=== PATIENT | female | born 1955 | race Asian ===

== ENCOUNTER 2020-10-15 08:58 | Outpatient (REF) | payer OTHER, SELFPAY ==
[2020-10-15 11:42] LABS: Alanine Aminotransferase 69 U/L (0-31); Aspartate Amino Transferase 43 U/L (5-31); Cholesterol 217 mg/dL; HDL Cholesterol 51 mg/dL; LDL Cholesterol Calculated 131 mg/dl; Triglycerides 177 mg/dL
[2020-10-15 11:56] LABS: Vitamin D 25-OH Total 20.1 ng/mL (>30)
== END 2020-10-15 08:59 | disposition home or self-care (01) ==
LOC: HO.HMGCLDS 08:58
PROVIDERS: PCP Internal Medicine; Visit Provider Internal Medicine
DX: E78.5 Hyperlipidemia, unspecified (principal); E55.9 Vitamin D deficiency, unspecified
CPT/HCPCS: 80061; 82306; 84450; 84460

== ENCOUNTER 2021-01-07 08:33 | Outpatient (REF) | payer OTHER, SELFPAY ==
--- NOTE | ~2021-01-07 | MM_ITS ---
EXAMINATION: BONE DENSITOMETRY CLINICAL INDICATION: Asymptomatic menopausal state. Age-related osteoporosis without current pathological fracture. COMPARISON: This is the patient's baseline examination. TECHNIQUE: Using a [employer] DXA System (software version: 13.1) manufactured by [employer], dual-energy x-ray absorptiometry was performed of the lumbar spine and left hip. The images are of good technical quality. Summary results are attached. FINDINGS: AP SPINE L1-L4: BMD 0.931 g/cm2, Z-score -0.5, T-score -2.1, osteopenia. LEFT FEMUR, NECK: BMD 0.744 g/cm2, Z-score -0.7, T-score -2.1, osteopenia. LEFT FEMUR, TOTAL: BMD 0.906 g/cm2, Z-score 0.4, T-score -0.8, normal. IDENTIFIED RISK FACTORS: Secondary osteoporosis, (early menopause). HISTORY OF FRACTURE: None listed. MEDICATIONS: Vitamin D. MM/XR DEXA axial skeleton IMPRESSION: 1. DIAGNOSIS: Osteopenia based on the lowest T-score value of -2.1 in the lumbar spine and femoral neck applying World Health Organization criteria. 2. 10-YEAR FRACTURE RISK PREDICTION, FRAX: Major osteoporotic fracture (clinical spine, forearm, hip or shoulder) 6.1%. Hip fracture 1.0%. 3. Treatment Recommendations: NOF guidelines recommend consideration for treatment in postmenopausal women and men age 50 and older presenting with the following: -A hip or vertebral (clinical or morphometric) fracture. -T-score less than or equal to -2.5 at the femoral neck or spine after appropriate evaluation to exclude secondary causes. -Low bone mass at the hip or spine and a 10-year fracture probability by FRAX of greater than or equal to 3% for hip fracture or greater than or equal to 20% for major osteoporotic fracture based on the [place] adapted WHO algorithm. 4. Other Recommendations: All treatment decisions require clinical judgment and consideration of individual patient factors, including patient preferences, comorbidities, previous drug use, risk factors not captured in the FRAX model (e.g. frailty, falls, vitamin D deficiency, increased bone turnover, interval significant decline in bone density) and possible under or overestimation of fracture risk by FRAX. Additional medical evaluation for secondary cause of low bone mineral density may be appropriate. FUTURE SCAN RECOMMENDATION: People with diagnosed cases of osteoporosis or at high risk for fracture should have regular bone mineral density tests. For patients eligible for Medicare, routine testing is allowed once every 2 years. The testing frequency can be increased to one year for patients who have rapidly progressing disease, those who are receiving or discontinuing medical therapy to restore bone mass, or have additional risk factors.
--- NOTE | ~2021-01-07 | MM_ITS ---
EXAMINATION: MM SCREENING DIGITAL BREAST TOMOSYNTHESIS, BILATERAL CLINICAL INFORMATION: Screening. Asymptomatic. The lifetime risk of breast cancer based on the Tyrer-Cuzick Model is 7%. COMPARISON: Mammography: 01/07/2019, 12/26/2017, 11/15/2016 TECHNIQUE: Digital breast tomosynthesis is performed in both the craniocaudal and mediolateral oblique views along with computer-aided detection (CAD). Synthesized 2D images are generated from the tomosynthesis. FINDINGS: There are scattered areas of fibroglandular density (ACR BI-RADS breast composition Category b). There are no significant masses, abnormal calcifications, or other abnormalities. The axilla and skin contours are unremarkable. MM/MM tomosynthesis screening BI IMPRESSION: There are no significant changes from prior study. ASSESSMENT: BI-RADS 1: Negative RECOMMENDATION: Routine annual mammography screening. This patient's information was entered into a reminder system with a target due date for their next mammogram.
== END 2021-01-07 08:34 | disposition home or self-care (01) ==
LOC: HO.MAMMO 08:33
PROVIDERS: PCP Internal Medicine; Visit Provider Internal Medicine
DX: Z12.31 Encounter for screening mammogram for malignant neoplasm of breast (principal); M81.8 Other osteoporosis without current pathological fracture; E28.319 Asymptomatic premature menopause
CPT/HCPCS: 77063; 77067; 77080

== ENCOUNTER 2021-01-25 06:13 | Outpatient (REF) | payer OTHER, SELFPAY ==
[2021-01-25 12:06] LABS: Vitamin D 25-OH Total 16.4 ng/mL (>30)
[2021-01-25 12:08] LABS: Alanine Aminotransferase 32 U/L (0-31); Anion Gap 14 (12-20); Aspartate Amino Transferase 27 U/L (5-31); Blood Urea Nitrogen 14 mg/dL (9-16); Calcium 9.3 mg/dL (8.4-10.2); Carbon Dioxide 25 mmol/L (22-29); Chloride 107 mmol/L (96-108); Cholesterol 203 mg/dL; Estimated Glomerular Filt Rate > 60; Glucose Fasting 87 mg/dL (60-99); HDL Cholesterol 59 mg/dL; LDL Cholesterol Calculated 119 mg/dl; Potassium 4.7 mmol/L (3.3-5.1); Sodium 141 mmol/L (135-145); Triglycerides 126 mg/dL
== END 2021-01-25 06:14 | disposition home or self-care (01) ==
LOC: HO.HMGCLDS 06:13
PROVIDERS: PCP Internal Medicine; Visit Provider Internal Medicine
DX: E78.5 Hyperlipidemia, unspecified (principal); E55.9 Vitamin D deficiency, unspecified; I10 Essential (primary) hypertension; Z78.0 Asymptomatic menopausal state
CPT/HCPCS: 36415; 80048; 80061; 82306; 84450; 84460

== ENCOUNTER 2021-06-09 09:30 | Outpatient (REF) | payer OTHER, SELFPAY ==
[2021-06-09 11:57] LABS: Alanine Aminotransferase 37 U/L (0-31); Aspartate Amino Transferase 25 U/L (5-31); Cholesterol 186 mg/dL; HDL Cholesterol 54 mg/dL; LDL Cholesterol Calculated 105 mg/dl; Triglycerides 138 mg/dL
[2021-06-09 12:18] LABS: Vitamin D 25-OH Total 44.7 ng/mL (>30)
== END 2021-06-09 09:31 | disposition home or self-care (01) ==
LOC: HO.HMGCLDS 09:30
PROVIDERS: PCP Internal Medicine; Visit Provider Internal Medicine
DX: E55.9 Vitamin D deficiency, unspecified (principal); E78.5 Hyperlipidemia, unspecified; M85.89 Other specified disorders of bone density and structure, multiple sites; Z78.0 Asymptomatic menopausal state
CPT/HCPCS: 36415; 80061; 82306; 84450; 84460

== ENCOUNTER 2021-12-03 09:21 | Outpatient (REF) | payer OTHER, SELFPAY ==
[2021-12-03 11:38] LABS: Alanine Aminotransferase 29 U/L (0-31); Aspartate Amino Transferase 20 U/L (5-31); Cholesterol 230 mg/dL; HDL Cholesterol 52 mg/dL; LDL Cholesterol Calculated 140 mg/dl; Triglycerides 191 mg/dL
== END 2021-12-03 09:22 | disposition home or self-care (01) ==
LOC: HO.HMGCLDS 09:21
PROVIDERS: PCP Internal Medicine; Visit Provider Internal Medicine
DX: E78.5 Hyperlipidemia, unspecified (principal)
CPT/HCPCS: 36415; 80061; 84450; 84460

== ENCOUNTER 2022-01-12 07:35 | Outpatient (REF) | payer OTHER, SELFPAY ==
--- NOTE | ~2022-01-12 | MM_ITS ---
EXAMINATION: MM SCREENING DIGITAL BREAST TOMOSYNTHESIS, BILATERAL CLINICAL INFORMATION: Screening. Asymptomatic. The lifetime risk of breast cancer based on the Tyrer-Cuzick Model is 13%. COMPARISON: Mammography: 01/07/2021, 01/07/2019, 12/26/2017 TECHNIQUE: Digital breast tomosynthesis is performed in both the craniocaudal and mediolateral oblique views along with computer-aided detection (CAD). Synthesized 2D images are generated from the tomosynthesis. FINDINGS: There are scattered areas of fibroglandular density (ACR BI-RADS breast composition Category b). There are no significant masses, abnormal calcifications, or other abnormalities. Parenchymal pattern is similar to prior studies. There is no developing density or architectural abnormality. The axilla and skin contours are unremarkable. No significant changes. MM/MM tomosynthesis screening BI IMPRESSION: No mammographic evidence of malignancy. ASSESSMENT: BI-RADS 1: Negative RECOMMENDATION: Routine annual mammography screening. This patient's information was entered into a reminder system with a target due date for their next mammogram.
== END 2022-01-12 07:36 | disposition home or self-care (01) ==
LOC: HO.MAMMO 07:35
PROVIDERS: PCP Internal Medicine; Visit Provider Internal Medicine
DX: Z12.31 Encounter for screening mammogram for malignant neoplasm of breast (principal)
CPT/HCPCS: 77063; 77067

== ENCOUNTER 2022-03-11 08:30 | Outpatient (REF) | payer OTHER, SELFPAY ==
[2022-03-11 11:29] LABS: Alanine Aminotransferase 33 U/L (0-31); Anion Gap 14 (12-20); Aspartate Amino Transferase 21 U/L (5-31); Blood Urea Nitrogen 11 mg/dL (9-16); Calcium 9.6 mg/dL (8.4-10.2); Carbon Dioxide 22 mmol/L (22-29); Chloride 109 mmol/L (96-108); Cholesterol 204 mg/dL; Estimated Glomerular Filt Rate > 60; Glucose Fasting 92 mg/dL (60-99); HDL Cholesterol 47 mg/dL; LDL Cholesterol Calculated 110 mg/dl; Potassium 4.3 mmol/L (3.3-5.1); Sodium 141 mmol/L (135-145); Triglycerides 235 mg/dL
[2022-03-11 14:16] LABS: Vitamin D 25-OH Total 32.1 ng/mL (>30)
== END 2022-03-11 08:31 | disposition home or self-care (01) ==
LOC: HO.HMGCLDS 08:30
PROVIDERS: PCP Internal Medicine; Visit Provider Internal Medicine
DX: Z00.01 Encounter for general adult medical examination with abnormal findings (principal); M85.89 Other specified disorders of bone density and structure, multiple sites; E78.5 Hyperlipidemia, unspecified; E55.9 Vitamin D deficiency, unspecified; Z78.0 Asymptomatic menopausal state
CPT/HCPCS: 36415; 80048; 80061; 82306; 84450; 84460

== ENCOUNTER 2022-03-16 11:23 | Outpatient (REF) | payer MEDICAID, SELFPAY ==
[2022-03-20 22:07] LABS: HPV mRNA E6/E7 rflx Not Detected (Not Detected)
== END 2022-03-16 11:24 | disposition home or self-care (01) ==
LOC: HO.LNP 11:23
PROVIDERS: Visit Provider Internal Medicine
DX: Z12.4 Encounter for screening for malignant neoplasm of cervix (principal); Z11.51 Encounter for screening for human papillomavirus (HPV)
CPT/HCPCS: 87624; 88142

== ENCOUNTER 2022-09-23 08:50 | Outpatient (REF) | payer MEDICARE, MEDICAID, SELFPAY ==
[2022-09-23 12:11] LABS: Alanine Aminotransferase 42 U/L (0-31); Aspartate Amino Transferase 29 U/L (5-31); Cholesterol 197 mg/dL; HDL Cholesterol 51 mg/dL; LDL Cholesterol Calculated 101 mg/dl; Triglycerides 227 mg/dL
[2022-09-23 15:17] LABS: Vitamin D 25-OH Total 47.1 ng/mL (>30)
== END 2022-09-23 08:51 | disposition home or self-care (01) ==
LOC: HO.HMGCLDS 08:50
PROVIDERS: PCP Internal Medicine; Visit Provider Internal Medicine
DX: M85.89 Other specified disorders of bone density and structure, multiple sites (principal); E55.9 Vitamin D deficiency, unspecified; E78.5 Hyperlipidemia, unspecified; Z78.0 Asymptomatic menopausal state
CPT/HCPCS: 36415; 80061; 82306; 84450; 84460

== ENCOUNTER 2023-01-18 07:37 | Outpatient (REF) | payer MEDICARE, MEDICAID, SELFPAY ==
--- NOTE | ~2023-01-18 | MM_ITS ---
EXAMINATION: MM SCREENING DIGITAL BREAST TOMOSYNTHESIS, BILATERAL CLINICAL INFORMATION: Screening. Asymptomatic. The lifetime risk of breast cancer based on the Tyrer-Cuzick Model is 7.8%. COMPARISON: Mammography: January 12, 2022 and studies dating back to September 03, 2015 TECHNIQUE: Digital breast tomosynthesis is performed in both the craniocaudal and mediolateral oblique views along with computer-aided detection (CAD). Synthesized 2D images are generated from the tomosynthesis. Left exaggerated craniocaudal view also performed. FINDINGS: There are scattered areas of fibroglandular density (ACR BI-RADS breast composition Category b). There are no significant masses, abnormal calcifications, or other abnormalities. MM/MM tomosynthesis screening BI IMPRESSION: No significant changes from prior exam. ASSESSMENT: BI-RADS 1: Negative RECOMMENDATION: Routine annual mammography screening. This patient's information was entered into a reminder system with a target due date for their next mammogram.
== END 2023-01-18 07:38 | disposition home or self-care (01) ==
LOC: HO.MAMMO 07:37
PROVIDERS: PCP Internal Medicine; Visit Provider Internal Medicine
DX: Z12.31 Encounter for screening mammogram for malignant neoplasm of breast (principal)
CPT/HCPCS: 77063; 77067

== ENCOUNTER 2023-06-15 07:43 | Outpatient (REF) | payer MEDICARE, MEDICAID, SELFPAY ==
[2023-06-15 14:53] LABS: Alanine Aminotransferase 36 U/L (0-31); Aspartate Amino Transferase 26 U/L (5-31); Cholesterol 183 mg/dL; HDL Cholesterol 60 mg/dL; LDL Cholesterol Calculated 95 mg/dl; Triglycerides 143 mg/dL
== END 2023-06-15 07:44 | disposition home or self-care (01) ==
LOC: HO.HMGCLDS 07:43
PROVIDERS: PCP Internal Medicine; Visit Provider Internal Medicine
DX: E78.5 Hyperlipidemia, unspecified (principal)
CPT/HCPCS: 36415; 80061; 84450; 84460

== ENCOUNTER 2023-06-21 08:22 | Outpatient (AMB) | payer MEDICARE, MEDICAID, SELFPAY ==
[2023-06-21 08:29] VITALS: BP 148/80; PULSE 83; O2SAT 98; BMI 25.6
--- NOTE | 2023-06-21 08:29 | A.OFFPC_ITS ---
Vital Signs 06/21/23 08:29 Height 5 ft 2 in Weight 140 lb BMI 25.6 BP 148/80 H Blood Pressure Location Lt brachial Position Sitting Pulse 83 Pulse Source Pulse Oximeter Pulse Oximetry (%) 98 Intake Visit Reasons: Annual PE Intake Note: Pt is here today for her PE Allergies apple [APPLE] Allergy (Severe, Verified 06/21/23 09:01) DYSPNEA/THROAT ITCHING Medication List - Last Reconciled 06/21/23 by Andreia Euceda MD ascorbic acid (vitamin C) mg PO cholecalciferol (vitamin D3) 25 mcg PO DAILY levocetirizine 5 mg PO DAILY omega [id number]-fish oil 1,200 (144-216) mg (Fish Oil) 2 caps PO .QD 30 days rosuvastatin 10 mg PO DAILY triamcinolone acetonide 0.025% 1 appl topical DAILY PRN Tobacco use date assessed: 06/21/23 Fall risk assessment: 1 Fall in past year Last assessed Fall Risk: 06/21/23 Dental Screening Dental Screen Date: 06/21/23 Did you have a dental visit in the last 12 months?: Yes Did you have a dental problem in the last 6 months where you did not have access to dental care?: No Was dental information given to patient?: Patient has dentist HPI Annual PE HPI Details 68-year-old lady with hypertension, seasonal allergies, dyslipidemia and osteopenia of multiple sites, here today for physical exam. HPI Comments History of Present Illness Details 68-year-old lady here today for physical exam. She has hypertension, dyslipidemia and osteopenia and multiple sites. Compliant with taking her medications and has been following recommended diet and fortunately she has not been able to exercise much due to recurrent pain in her lower back. Diagnosed to have a compression fracture, seen and x-ray done August 2022 at [facility]. Denies leg weakness, no urinary or stool incontinence, no numbness or tingling down lower extremities. [facility] Medical History (Updated 06/21/23 @ 09:19 by Andreia Euceda MD) Asymptomatic postmenopausal state Compression fx, lumbar spine Dyslipidemia Essential hypertension Low Back Pain Osteopenia of multiple sites Seasonal allergies Vitamin D deficiency Surgical History No pertinent past surgical history Family History Father History of heart attack Mother History of heart attack Sister Breast cancer Sister Ovarian cancer Sister Ovarian cancer Sister No problems noted. Sister No problems noted. Brother No problems noted. Brother Stroke Daughter No problems noted. Social History Housing: Other Housing Other:: moble home Alcohol intake: never Patient Tobacco Use Status: Never used Tobacco e-Cigarette/Vaping Use: Never Used Current occupational status: employed Current occupation: [employer] Cognitive needs: No Hearing needs: No Vision needs: Yes Questionnaire PHQ-9 Over the last 2 weeks, how often have you been bothered by any of the following problems? 1. Little interest or pleasure in doing things: not at all 2. Feeling down, depressed, or hopeless: not at all 3. Trouble falling or staying asleep, or sleeping too much: not at all 4. Feeling tired or having little energy: not at all 5. Poor appetite or overeating: not at all 6. Feeling bad about yourself - or that you are a failure or have let yourself or your family down: not at all 7. Trouble concentrating on things, such as reading the newspaper or watching television: not at all 8. Moving or speaking so slowly that other people could have noticed. Or the opposite - being so fidgety or restless that you have been moving around a lot more than usual: not at all 9. Thoughts that you would be better off or of hurting yourself in some way: not at all Total score: 0 Depression Screening Interpretation: Negative 17964 - PHQ-9 Billing: Yes Source: Developed by Drs. Bernabe Swanson, Mouna Yip, Derrek Schwab and colleagues, with an educational huong from [employer]. Thrive Questionnaire Date Thrive assessed: 06/21/23 I am a: Patient What is your living situation today?: I have a steady place to live Within the past 12 months, did the food you bought not last and you didn't have the money to get more?: Never true Within the past 12 months, did you worry whether your food would run out before you got money to buy more?: Never true Do you have trouble paying for medicines?: No Do you have trouble getting transportation to medical appointments?: No Do you have trouble paying your heating and electricity bill?: No Do you have trouble taking care of your child, family member or friend?: No Do you have trouble with day-to-day activities such as bathing, preparing meals, shopping, managing finances, etc.?: No Are you currently unemployed and looking for a job?: No Are you interested in more education?: No AUDIT C Alcohol Use Questionnaire (AUDIT-C) 1. How often do you have a drink containing alcohol?: Never Total Score: 0 CARLOS-7 AMB Questionnaire CARLOS-7 Date CARLOS - 7 assessed: 06/21/23 Feeling nervous, anxious, or on edge: 0 = Not at all Not being able to stop or control worryin = Not at all Worrying too much about different things: 0 = Not at all Trouble relaxin = Not at all Being so restless that it is hard to sit still: 0 = Not at all Becoming easily annoyed or irritable: 0 = Not at all Feeling afraid as if something awful might happen: 0 = Not at all Total CARLOS-7 score (0-4 normal; 5-9 mild; 10-14 moderate; 15-21 severe): 0 Source: Developed by Drs. Bernabe Swanson, Mouna Yip, Derrek Schwab and colleagues, with an educational huong from [employer]. CARLOS-7 Assessment Billing CARLOS-7 Assessment Tool: CARLOS-7 Assessment 20500 Review of Systems Const Denies fever(s) and Denies weakness Eyes Denies change in vision ENT Denies dizziness and Denies disequilibrium Card Denies chest pain, Denies lightheadedness and Denies dyspnea Resp Denies chest congestion, Denies cough and Denies dyspnea GI Denies abdominal pain, Denies change in bowel habits and Denies heartburn Denies hematuria, Denies urinary frequency, Denies difficulty voiding, Denies dysuria, Denies urinary incontinence and Denies urinary hesitancy Musc Reports as per HPI, Denies joint swelling, Denies limited range of motion, Denies muscle weakness, Denies numbness, Denies radiating pain into limb, Reports stiffness and Denies tingling Skin/Breast Denies lesions and Denies rash Neuro Denies dizziness, Denies lack of coordination, Denies focal weakness, Denies numbness, Denies Sensory deficit (Neuro), Denies tingling, Denies paresthesias, Denies disequilibrium and Denies weakness Psych Reports no additional complaints Endo Reports no additional complaints Doug/Lymph Reports no additional complaints Aller/Immun Reports seasonal rhinorrhea Physical exam (Primary Care) Vital Signs: Last Vital Signs Pulse 83 06/21/23 08:29 BP 148/80 H 06/21/23 08:29 Pulse Ox 98 06/21/23 08:29 BMI result Body Mass Index 25.6 Tobacco/Smoking Status: Tobacco use Status Tobacco use date assessed 06/21/23 06/21/23 08:36 Patient Tobacco Use Status Never used Tobacco 06/21/23 08:29 e-Cigarette/Vaping Use Never Used 06/21/23 08:29 PHQ-9: PHQ-9 Score PHQ-9: Total score 0 06/24/23 19:36 Depression Screening Interpretation: Negative Thrive Assessment: Date of Thrive Assessment Date Thrive assessed 06/21/23 06/21/23 08:36 Const Other: Alert oriented x3, no acute distress noted ambulatory normal gait Orientation/consciousness: patient oriented x3 HENMT Mouth: Normal oral and palatal mucosa present and moist mucous membranes Neck Other: Neck is supple common with no lymphadenopathy, full range of motion, thyroid gland nonpalpable Chest Breast/axilla inspection: normal inspection of the breasts Breast/axilla palpation: normal palpation of the breasts Resp Auscultation: clear to auscultation bilaterally Cardio Other: S1-S2 present regular rate and rhythm Bruits: no abdominal aortic bruits GI Palpation (GI): No Abdominal aortic bruit present, Soft to palpation, nontender and no guarding Back/Spine/Pelvis Thoracic/Lumbar Spine: thoracic and lumbar spine normal to inspection, straight leg raise negative bilaterally, No pain with thoraco-lumbar ROM and lumbar spinal tenderness (At L1) Skin Lesions: no lesions Neuro General: patient oriented x3, gait normal, tone normal, moves all extremities, Normal light touch and pain sensation, no focal motor deficits, CN's II-XI intact bilaterally and deep tendon reflexes 2+ bilaterally Gait exam (Neuro): Normal gait present Motor exam (neuro): 5/5 motor strength present throughout Sensory Exam: No Sensory deficit (Neuro) Deep tendon reflexes (DTR's): Right patellar reflex intensity grade: 2+, Left patellar reflex intensity grade: 2+, Right ankle reflex intensity grade: 2+ and Left ankle reflex intensity grade: 2+ Extrem General: Yes normal to inspection, Yes full ROM, Yes no joint enlargement, Yes no clubbing, cyanosis or edema, Yes no pedal edema, Yes no calf tenderness and Yes normal gait Psych Appearance: grossly normal and well kempt Mental Status: mental status grossly normal Speech and movement: Normal speech and movement present Affect: normal affect Thought process: Normal thought process present Thought content: Normal thought content present Results Reviewed Results Reviewed: ENTERED: 06/15/23 OTHR [place]: ORDERED: AST, ALT, Lipid Panel Test Result Flag Reference Site AST (GOT) 26 5-31 U/L ALT (GPT) 36 H 0-31 U/L Triglyceride 143 mg/dL Desirable Triglyceride: less than 150 mg/dL Borderline High Triglyceride 150-199 mg/dL High Triglyceride: 200-499 mg/dL Very High Triglyceride: greater than or equal to 5OO mg/dL Chol 183 mg/dL Desirable Cholesterol: less than 200 mg/dL Borderline High Cholesterol: 200-239 mg/dL High Cholesterol: greater than 239 mg/dL LDL Calculated 95 mg/dl Desirable LDL: less than 100 mg/dL Near Optimal/Above Optimal LDL: 110-129 mg/dL Borderline High LDL: 130-159 mg/dL High LDL: 160-189 mg/dL Very High LDL: greater than or equal to 190 mg/dL HDL 60 mg/dL Desirable HDL: greater than 40 mg/dL Note: This HDL assay may give artificially low results in patients with liver disease. Assessment and Plan Assessment & Plan (1) Encounter for general adult medical examination with abnormal findings: Code(s): Z00.01 - Encounter for general adult medical examination with abnormal findings Plan: Reviewed recent fasting labs patient with lipids improved. Recommended dental visit every 6 months and regular eye exams, at least every 2 years. Take adequate calcium in diet and vitamin-D 3 at 2000 IU per cap once a day, in addition to weight-bearing exercises to help maintain good muscle tone and weight control. Instructed to do self-breast exam, and get yearly mammogram, currently up-to-date. Ordered a bone density to be done next year together with mammogram. Up-to-date with her screening colonoscopy, up-to-date with all her vaccinations, recommend to get RSV vaccine (2) Essential hypertension: Code(s): I10 - Essential (primary) hypertension Plan: Blood pressure not at goal of less than 130/80. Start losartan 50 mg 1 tablet daily in the morning. Reinforced importance of following a low sodium diet, getting regular exercise, and lowering stress levels. See nurse navigator in a week to check blood pressure (3) Compression fx, lumbar spine: Comment: Compression fracture L1 unknown age as noted on a x-ray done 08/20/2022 at [facility] Code(s): S32.000A - Wedge compression fracture of unspecified lumbar vertebra, initial encounter for closed fracture Plan: Referred for physical therapy for evaluation treatment of low back pain/tightness (4) Osteopenia of multiple sites: Comment: Seen on initial bone density scan done December 2020 Code(s): M85.89 - Other specified disorders of bone density and structure, multiple sites Plan: Continue with vitamin-D 3 2000 units daily and take adequate calcium from dietary sources, continue with regular exercise. Will repeat another bone density scan next year together with screening mammogram (5) Seasonal allergies: Code(s): J30.2 - Other seasonal allergic rhinitis Plan: Continue levocetirizine (6) Dyslipidemia: Code(s): E78.5 - Hyperlipidemia, unspecified Orders: Orders XR DEXA axial skeleton 06/21/23 M85.89 - Other specified disorders of bone density and structure, multiple sites, S32.000A - Wedge compression fracture of unspecified lumbar vertebra, initial encounter for closed fracture Basic Metabolic Panel Fasting 1 Week I10 - Essential (primary) hypertension, J30.2 - Other seasonal allergic rhinitis, M85.89 - Other specified disorders of bone density and structure, multiple sites, Z00.01 - Encounter for general adult medical examination with abnormal findings, Z78.0 - Asymptomatic menopausal state Vitamin D 25-OH Total 1 Week I10 - Essential (primary) hypertension, J30.2 - Other seasonal allergic rhinitis, M85.89 - Other specified disorders of bone density and structure, multiple sites, Z00.01 - Encounter for general adult medical examination with abnormal findings, Z78.0 - Asymptomatic menopausal state PT Evaluation and Treatment 06/21/23 M54.50 - Low back pain, unspecified, S32.000A - Wedge compression fracture of unspecified lumbar vertebra, initial encounter for closed fracture Lipid Panel 10/12/23 E78.5 - Hyperlipidemia, unspecified, I10 - Essential (primary) hypertension, M85.89 - Other specified disorders of bone density and structure, multiple sites, S32.000A - Wedge compression fracture of unspecified lumbar vertebra, initial encounter for closed fracture, Z78.0 - Asymptomatic menopausal state Aspartate Amino Transferase 10/12/23 E78.5 - Hyperlipidemia, unspecified, I10 - Essential (primary) hypertension, M85.89 - Other specified disorders of bone density and structure, multiple sites, S32.000A - Wedge compression fracture of unspecified lumbar vertebra, initial encounter for closed fracture, Z78.0 - Asymptomatic menopausal state Alanine Aminotransferase 10/12/23 E78.5 - Hyperlipidemia, unspecified, I10 - Essential (primary) hypertension, M85.89 - Other specified disorders of bone density and structure, multiple sites, S32.000A - Wedge compression fracture of unspecified lumbar vertebra, initial encounter for closed fracture, Z78.0 - Asymptomatic menopausal state Basic Metabolic Panel Fasting 10/12/23 E78.5 - Hyperlipidemia, unspecified, I10 - Essential (primary) hypertension, M85.89 - Other specified disorders of bone density and structure, multiple sites, S32.000A - Wedge compression fracture of unspecified lumbar vertebra, initial encounter for closed fracture, Z78.0 - Asymptomatic menopausal state Vitamin D 25-OH Total 10/12/23 E78.5 - Hyperlipidemia, unspecified, I10 - Essential (primary) hypertension, M85.89 - Other specified disorders of bone density and structure, multiple sites, S32.000A - Wedge compression fracture of unspecified lumbar vertebra, initial encounter for closed fracture, Z78.0 - Asymptomatic menopausal state Medications: New losartan 50 mg PO DAILY 30 tabs 1RF Refilled triamcinolone acetonide 0.025% 1 appl topical DAILY PRN 15 grams 0RF rash Coding Level of Care Code Est Pt Prev Care >65y(95699) Diagnoses Encounter for general adult medical examination with abnormal findings Z00.01 Essential hypertension I10 Compression fx, lumbar spine S32.000A Osteopenia of multiple sites M85.89 Seasonal allergies J30.2 Dyslipidemia E78.5 Additional Codes CARLOS-7 Assessment Billing - CARLOS-7 Assessment Tool: CARLOS-7 Assessment 51723 ([id number])
== END 2023-06-21 10:39 | disposition home or self-care (01) ==
PROVIDERS: PCP Internal Medicine; Visit Provider Internal Medicine
DX: Z00.01 Encounter for general adult medical examination with abnormal findings (principal); I10 Essential (primary) hypertension; S32.000A Wedge compression fracture of unspecified lumbar vertebra, initial encounter for closed fracture; M85.89 Other specified disorders of bone density and structure, multiple sites; J30.2 Other seasonal allergic rhinitis; E78.5 Hyperlipidemia, unspecified
CPT/HCPCS: 99397

== ENCOUNTER 2023-07-12 08:00 | Outpatient (REF) | payer MEDICARE, MEDICAID, SELFPAY ==
--- NOTE | ~2023-07-12 | MM_ITS ---
EXAMINATION: BONE DENSITOMETRY CLINICAL INDICATION: Wedge compression fracture of unspecified lumbar vertebra. COMPARISON: Baseline BD dated 01/07/2021. TECHNIQUE: Using a [employer] DXA System (software version: 13.1) manufactured by [employer], dual-energy x-ray absorptiometry was performed of the lumbar spine and left hip. The images are of good technical quality. Summary results are attached. FINDINGS: LEFT FEMUR, NECK: Current: BMD 0.715 g/cm2, Z-score -0.8, T-score -2.3, osteopenia. Baseline: BMD 0.744 g/cm2. LEFT FEMUR, TOTAL: Current: BMD 0.902 g/cm2, Z-score 0.5, T-score -0.8, normal, 0.4% decrease from baseline (<5% change is not significant). Baseline: BMD 0.906 g/cm2. AP SPINE L2-L4 (excluding L1): The data of L1-L4 has been changed to exclude the L1 vertebral body, because increased sclerosis at this level may cause overestimation of lumbar spine density. Current: BMD 0.930 g/cm2, Z-score -0.6, T-score -2.2, osteopenia, 0.7% decrease from baseline (<5% change is not significant). Baseline: BMD 0.937 g/cm2. IDENTIFIED RISK FACTORS: Early menopause, secondary osteoporosis. HISTORY OF FRACTURE: Spine. MEDICATIONS: Calcium, vitamin D. MM/XR DEXA axial skeleton IMPRESSION: 1. DIAGNOSIS: Osteopenia based on the lowest T-score value of -2.3 in the femoral neck applying World Health Organization criteria. 2. 10-YEAR FRACTURE RISK PREDICTION, FRAX: Major osteoporotic fracture (clinical spine, forearm, hip or shoulder) 7.1%. Hip fracture 1.4%. 3. Treatment Recommendations: NOF guidelines recommend consideration for treatment in postmenopausal women and men age 50 and older presenting with the following: -A hip or vertebral (clinical or morphometric) fracture. -T-score less than or equal to -2.5 at the femoral neck or spine after appropriate evaluation to exclude secondary causes. -Low bone mass at the hip or spine and a 10-year fracture probability by FRAX of greater than or equal to 3% for hip fracture or greater than or equal to 20% for major osteoporotic fracture based on the [place] adapted WHO algorithm. 4. Other Recommendations: All treatment decisions require clinical judgment and consideration of individual patient factors, including patient preferences, comorbidities, previous drug use, risk factors not captured in the FRAX model (e.g. frailty, falls, vitamin D deficiency, increased bone turnover, interval significant decline in bone density) and possible under or overestimation of fracture risk by FRAX. Additional medical evaluation for secondary cause of low bone mineral density may be appropriate. FUTURE SCAN RECOMMENDATION: People with diagnosed cases of osteoporosis or at high risk for fracture should have regular bone mineral density tests. For patients eligible for Medicare, routine testing is allowed once every 2 years. The testing frequency can be increased to one year for patients who have rapidly progressing disease, those who are receiving or discontinuing medical therapy to restore bone mass, or have additional risk factors.
== END 2023-07-12 08:01 | disposition home or self-care (01) ==
LOC: HO.MAMMO 08:00
PROVIDERS: PCP Internal Medicine; Visit Provider Internal Medicine
DX: Z13.820 Encounter for screening for osteoporosis (principal); M85.89 Other specified disorders of bone density and structure, multiple sites; S32.000A Wedge compression fracture of unspecified lumbar vertebra, initial encounter for closed fracture; Z78.0 Asymptomatic menopausal state
CPT/HCPCS: 77080

== ENCOUNTER → 2023-07-12 08:15 | Outpatient (BNV) | payer MEDICARE, MEDICAID, SELFPAY | PROVIDERS: PCP Internal Medicine; Visit Provider Radiology Diagnostic Radiology | DX: M85.89 Other specified disorders of bone density and structure, multiple sites (principal) | CPT/HCPCS: 77080 ==

== ENCOUNTER 2023-07-12 09:53 | Outpatient (RCR) | payer MEDICARE, MEDICAID, SELFPAY ==
[2023-07-12 10:02] VITALS: BP 166/100
--- NOTE | 2023-07-12 12:06 | MHC.PT.EP ---
[facility] [place] Office [place] Office [place] Office [address] [phone] F: [phone] F: [phone] F: [phone] F: [phone] Physical Therapy Plan of Care Date of Evaluation: Date of Surgery: Diagnosis: Wedge compression fx, low back pain Assessment: Pt is a 68 y/o F with osteopenia, and essential HTN who is referred to PT for eval and treat of wedge compression fx/ low back pain resulting in decreased tolerance or ability for bed mobility and lifting objects of weight secondary to increased lumbar tissue tension, and pain decreased lumbar mobility, and decreased hip strength. Pt is motivated and is deemed an appropriate candidate to receive skinned PT services to address her physical impairments in order to improve her functional tolerance. Frequency and Duration: The patient will be seen 2x/wk x3wks Short Term Goals: Initiate HEP Nursing Home Goals: [place] with HEP Pt will not have pain in bed; initial: pt gets pain in bed but does not prevent her from sleeping well. Pt will be able to sit for more than an hour without pain; initial: pain prevent pt from sitting more than 1 hour. Pt will improve hip flexion strength by at least 1/2 MMT grade; initial: 4-/5 L, 4/5 R Treatment Plan: Modalities to reduce pain, spasms and effusion. Manual therapy to restore motion and function. Therapeutic exercise to improve strength and flexibility. Neuromuscular re-education for posture and balance. Therapeutic activities to return to functional activities of daily living. Electronically signed by: Jd Newton PT Please sign and return to therapist. Thank you for your referral.
--- NOTE | 2023-07-18 14:57 | MHC.PT.DC ---
[facility] [place] Office [place] [facility] [place] Office [address] Sandi Mei [address] [phone] F: [phone] F: [phone] F: [phone] F: [phone] Physical Therapy Discharge Report Diagnosis: Wedge compression fx, low back pain Date of Surgery: Date of Evaluation: 07/12/23 Date of Discharge: 07/18/23 Treatments to Date: 1 Cancellations to Date: No Shows to Date: Discharge Status: Patient Elected to Stop Discharge Summary: . Electronically signed by: Jd Newton PT Please sign and return to therapist. Thank you for your referral.
== END 2023-07-18 14:58 | disposition home or self-care (01) ==
LOC: HO.PTCHIC 09:53
PROVIDERS: PCP Internal Medicine; Visit Provider Internal Medicine
DX: S32.000D Wedge compression fracture of unspecified lumbar vertebra, subsequent encounter for fracture with routine healing (principal); M54.50 Low back pain, unspecified
CPT/HCPCS: 97110; 97161

== ENCOUNTER 2023-10-19 09:04 | Outpatient (REF) | payer OTHER, MEDICAID, SELFPAY ==
[2023-10-19 13:27] LABS: Alanine Aminotransferase 35 U/L (0-31); Anion Gap 13 (12-20); Aspartate Amino Transferase 27 U/L (5-31); Blood Urea Nitrogen 13 mg/dL (9-16); Calcium 9.5 mg/dL (8.4-10.2); Carbon Dioxide 26 mmol/L (22-29); Chloride 107 mmol/L (96-108); Cholesterol 179 mg/dL (<200); Estimated Glomerular Filt Rate > 60; Glucose Fasting 93 mg/dL (60-99); HDL Cholesterol 58 mg/dL (>40); LDL Cholesterol Calculated 95 mg/dL (<100); Potassium 4.1 mmol/L (3.3-5.1); Sodium 142 mmol/L (135-145); Triglycerides 134 mg/dL (<150)
[2023-10-19 13:55] LABS: Vitamin D 25-OH Total 68.6 ng/mL (>30)
== END 2023-10-19 09:05 | disposition home or self-care (01) ==
LOC: HO.HMGCLDS 09:04
PROVIDERS: PCP Internal Medicine; Visit Provider Internal Medicine
DX: Z00.01 Encounter for general adult medical examination with abnormal findings (principal); M85.89 Other specified disorders of bone density and structure, multiple sites; J30.2 Other seasonal allergic rhinitis; I10 Essential (primary) hypertension; S32.000A Wedge compression fracture of unspecified lumbar vertebra, initial encounter for closed fracture; E78.5 Hyperlipidemia, unspecified; Z78.0 Asymptomatic menopausal state
CPT/HCPCS: 36415; 80048; 80061; 82306; 84450; 84460

== ENCOUNTER 2023-10-25 08:49 | Outpatient (AMB) | payer OTHER, MEDICAID, SELFPAY ==
--- NOTE | 2023-10-25 08:51 | MHC.PC.OV ---
Vital Signs 10/25/23 08:52 Height 5 ft 2 in Weight 144 lb BMI 26.3 BP 120/80 Blood Pressure Location Rt brachial Position Sitting Pulse 72 Pulse Source Pulse Oximeter Pulse Oximetry (%) 97 Oxygen Delivery Method Room Air Intake Visit Reasons: 4 month fu Intake Note: Pt is here to follow up for her lab results Allergies apple [APPLE] Allergy (Severe, Verified 10/25/23 09:21) DYSPNEA/THROAT ITCHING Medication List - Last Reconciled 10/25/23 by Andreia Euceda MD ascorbic acid (vitamin C) mg PO cholecalciferol (vitamin D3) 25 mcg PO DAILY levocetirizine 5 mg PO DAILY omega 5-arm-sif-fish oil 1,200 (144-216) mg (Fish Oil) 2 caps PO .QD 30 days rosuvastatin 10 mg PO DAILY triamcinolone acetonide 0.025% 1 appl topical DAILY PRN Tobacco use date assessed: 10/25/23 Fall risk assessment: No Falls in past year Last assessed Fall Risk: 10/25/23 Dental Screening Dental Screen Date: 10/25/23 Did you have a dental visit in the last 12 months?: Yes Did you have a dental problem in the last 6 months where you did not have access to dental care?: No Was dental information given to patient?: Patient has dentist HPI 4 month fu HPI Details 68-year-old lady here today for follow-up on her lipids, and hypertension, latter is currently diet controlled she has been compliant with taking her medications and has been following recommended diet. Her she has been checking her blood pressure at home with her own blood pressure monitor of, and blood pressure has been averaging 120/80 . She has been feeling well with no complaints at present time [facility] Medical History Low Back Pain Essential hypertension Compression fx, lumbar spine Osteopenia of multiple sites Asymptomatic postmenopausal state Vitamin D deficiency Seasonal allergies Dyslipidemia Surgical History No pertinent past surgical history Family History Father History of heart attack Mother History of heart attack Sister Breast cancer Sister Ovarian cancer Sister Ovarian cancer Sister No problems noted. Sister No problems noted. Brother No problems noted. Brother Stroke Daughter No problems noted. Social History Housing: Other Housing Other:: moble home Alcohol intake: never Patient Tobacco Use Status: Never used Tobacco e-Cigarette/Vaping Use: Never Used Current occupational status: employed Current occupation: [employer] Cognitive needs: No Hearing needs: No Vision needs: Yes Questionnaire PHQ-9 Over the last 2 weeks, how often have you been bothered by any of the following problems? Depression Screening Interpretation: Negative Depression Screening Done: Yes Source: Developed by Drs. Brenabe Swanson, Mouna Yip, Derrek Schwab and colleagues, with an educational huong from [employer], [employer]. Thrive Questionnaire Date Thrive assessed: 06/21/23 CARLOS-7 AMB Questionnaire CARLOS-7 Date CARLOS - 7 assessed: 06/21/23 Source: Developed by Drs. Bernabe Swanson, Mouna Yip, Derrek Schwab and colleagues, with an educational huong from [employer], [employer]. Review of Systems Const Denies fever(s) and Denies weakness ENT Denies dizziness and Denies disequilibrium Card Denies chest pain, Denies lightheadedness and Denies dyspnea Resp Denies chest congestion, Denies cough and Denies dyspnea GI Denies abdominal pain, Denies change in bowel habits and Denies heartburn Neuro Denies dizziness, Denies lack of coordination, Denies focal weakness, Denies Sensory deficit (Neuro), Denies paresthesias, Denies disequilibrium and Denies weakness Physical exam (Primary Care) Vital Signs: Last Vital Signs Pulse 72 10/25/23 08:52 BP 120/80 10/25/23 08:52 Pulse Ox 97 10/25/23 08:52 Oxygen Delivery Method Room Air 10/25/23 08:52 BMI result Body Mass Index 26.3 Tobacco/Smoking Status: Tobacco use Status Tobacco use date assessed 10/25/23 10/25/23 08:59 Patient Tobacco Use Status Never used Tobacco 10/25/23 08:51 e-Cigarette/Vaping Use Never Used 10/25/23 08:51 Depression Screening Interpretation: Negative Thrive Assessment: Date of Thrive Assessment Date Thrive assessed 06/21/23 10/25/23 08:51 Const Other: Alert oriented x3, no acute distress noted ambulatory normal gait Orientation/consciousness: patient oriented x3 HENMT Mouth: Normal oral and palatal mucosa present and moist mucous membranes Neck Other: Neck is supple common with no lymphadenopathy, full range of motion, thyroid gland nonpalpable Resp Auscultation: clear to auscultation bilaterally Cardio Other: S1-S2 present regular rate and rhythm Bruits: no abdominal aortic bruits GI Palpation (GI): No Abdominal aortic bruit present, Soft to palpation, nontender and no guarding Neuro General: patient oriented x3, gait normal, tone normal, moves all extremities, Normal light touch and pain sensation, no focal motor deficits, CN's II-XI intact bilaterally and deep tendon reflexes 2+ bilaterally Gait exam (Neuro): Normal gait present Motor exam (neuro): 5/5 motor strength present throughout Sensory Exam: No Sensory deficit (Neuro) Deep tendon reflexes (DTR's): Right patellar reflex intensity grade: 2+, Left patellar reflex intensity grade: 2+, Right ankle reflex intensity grade: 2+ and Left ankle reflex intensity grade: 2+ Extrem General: Yes normal to inspection, Yes full ROM, Yes no joint enlargement, Yes no clubbing, cyanosis or edema, Yes no pedal edema, Yes no calf tenderness and Yes normal gait Psych Appearance: grossly normal and well kempt Mental Status: mental status grossly normal Speech and movement: Normal speech and movement present Affect: normal affect Thought process: Normal thought process present Thought content: Normal thought content present Results Reviewed Results Reviewed: Name: Shelby Puentes Age/Sex: 68/F : 1955 Unit#: [id number] Attend Dr: Andreia Euceda MD Re10/19/23 Status: DEP REF Location: [facility] Disch: SPEC : [id number] JEIMY: 10/19/23 STATUS: COMP REQ : [id number] RECD: 10/19/23-[address]: Andreia Euceda MD COMP: 10/19/23 ENTERED: 10/19/[address]: ORDERED: Met Prof Fast, AST, ALT, Lipid Panel, Vitamin D 25-OH Test Result Flag Reference Site Sodium 142 135-145 mmol/L Potassium 4.1 3.3-5.1 mmol/L CL 107 96-108 mmol/L CO2 26 22-29 mmol/L Gap 13 12-20 BUN 13 9-16 mg/dL Creat 0.73 0.5-1.4 mg/dL EGFR > 60 NOTE: For -[place] individuals, multiply the result by 1.210. Chronic Kidney Disease: Estimated GFR < 60 mL/min/1.73m2 Severe Kidney Disease: Estimated GFR < 15 mL/min/1.73m2 FBS 93 60-99 mg/dL CA 9.5 8.4-10.2 mg/dL AST (GOT) 27 5-31 U/L ALT (GPT) 35 H 0-31 U/L Triglyceride 134 <150 mg/dL Desirable Triglyceride: less than 150 mg/dL Borderline High Triglyceride 150-199 mg/dL High Triglyceride: 200-499 mg/dL Very High Triglyceride: greater than or equal to 5OO mg/dL Cholesterol 179 <200 mg/dL Desirable Cholesterol: less than 200 mg/dL Borderline High Cholesterol: 200-239 mg/dL High Cholesterol: greater than 239 mg/dL LDL Calculated 95 <100 mg/dL Desirable LDL: less than 100 mg/dL Near Optimal/Above Optimal LDL: 110-129 mg/dL Borderline High LDL: 130-159 mg/dL High LDL: 160-189 mg/dL Very High LDL: greater than or equal to 190 mg/dL HDL 58 >40 mg/dL Desirable HDL: greater than 40 mg/dL Note: This HDL assay may give artificially low results in patients with liver disease. Vit D 25-OH Tot 68.6 >30 ng/mL Health Based Reference Values* < 20 ng/mL Deficient 20-30 ng/mL Insufficient > 30 ng/mL Sufficient Assessment and Plan Assessment & Plan (1) Dyslipidemia: Code(s): E78.5 - Hyperlipidemia, unspecified Plan: Reviewed recent fasting lipid profile with patient with levels within normal limits, with improvement in her triglycerides . Continue with rosuvastatin and [place] 3 fatty acid supplements , in addition to adherence to low-cholesterol diet and regular exercise, at least 30 minutes 3 to 4 times a week. Advised patient to make healthy food choices, eat more fruits, vegetables, whole grains, wild caught fish and low-fat dairy. Limit amount of meat and fried or fatty food products, as well as processed foods and fast foods. Follow-up scheduled with repeat fasting lipid panel in 06/2024 (2) Essential hypertension: Code(s): I10 - Essential (primary) hypertension Plan: Blood pressure at goal of less than 130/80. Continue adhering to healthy eating habits and getting regular exercise,. Reinforced importance of following a low sodium diet, getting regular exercise, and lowering stress levels. Orders: Orders Alanine Aminotransferase 06/12/24 E78.5 - Hyperlipidemia, unspecified, I10 - Essential (primary) hypertension, M85.89 - Other specified disorders of bone density and structure, multiple sites, Z00.01 - Encounter for general adult medical examination with abnormal findings, Z78.0 - Asymptomatic menopausal state Aspartate Amino Transferase 06/12/24 E78.5 - Hyperlipidemia, unspecified, I10 - Essential (primary) hypertension, M85.89 - Other specified disorders of bone density and structure, multiple sites, Z00.01 - Encounter for general adult medical examination with abnormal findings, Z78.0 - Asymptomatic menopausal state Vitamin D 25-OH Total 06/12/24 E78.5 - Hyperlipidemia, unspecified, I10 - Essential (primary) hypertension, M85.89 - Other specified disorders of bone density and structure, multiple sites, Z00.01 - Encounter for general adult medical examination with abnormal findings, Z78.0 - Asymptomatic menopausal state Hemoglobin and Hematocrit 06/12/24 E78.5 - Hyperlipidemia, unspecified, I10 - Essential (primary) hypertension, M85.89 - Other specified disorders of bone density and structure, multiple sites, Z00.01 - Encounter for general adult medical examination with abnormal findings, Z78.0 - Asymptomatic menopausal state Lipid Panel 06/12/24 E78.5 - Hyperlipidemia, unspecified, I10 - Essential (primary) hypertension, M85.89 - Other specified disorders of bone density and structure, multiple sites, Z00.01 - Encounter for general adult medical examination with abnormal findings, Z78.0 - Asymptomatic menopausal state Basic Metabolic Panel Fasting 06/12/24 E78.5 - Hyperlipidemia, unspecified, I10 - Essential (primary) hypertension, M85.89 - Other specified disorders of bone density and structure, multiple sites, Z00.01 - Encounter for general adult medical examination with abnormal findings, Z78.0 - Asymptomatic menopausal state Coding Level of Care Code Est Pt Level 3 (93787) Diagnoses Dyslipidemia E78.5 Essential hypertension I10
[2023-10-25 08:52] VITALS: BP 120/80; PULSE 72; O2SAT 97; BMI 26.3
== END 2023-10-25 12:54 | disposition home or self-care (01) ==
PROVIDERS: PCP Internal Medicine; Visit Provider Internal Medicine
DX: E78.5 Hyperlipidemia, unspecified (principal); I10 Essential (primary) hypertension
CPT/HCPCS: 99213

== ENCOUNTER 2023-10-31 10:13 | Outpatient (AMB) | payer OTHER, MEDICAID, SELFPAY ==
--- NOTE | 2023-10-31 10:24 | MHC.PC.OV ---
Vital Signs 10/31/23 10:26 10/31/23 10:56 Height 5 ft 2 in Weight 142 lb 4 oz BMI 26.0 BP 142/80 H 130/80 Blood Pressure Location Rt brachial Rt brachial Position Sitting Sitting Pulse 83 Pulse Source Pulse Oximeter Pulse Oximetry (%) 97 Oxygen Delivery Method Room Air Intake Visit Reasons: Dizziness Intake Note: Pt says she has been getting dizzy since Sat when she sits she is fine but when she turns to the left she gets dizzy and and she she is laying down on her left side and she turns over to the left side she gets dizzy pt and she has been nausea and a headaches on the left side of her face and on her neck and shoulders Allergies apple [APPLE] Allergy (Severe, Verified 10/31/23 10:44) DYSPNEA/THROAT ITCHING Medication List - Last Reconciled 10/31/23 by Andreia Euceda MD ascorbic acid (vitamin C) mg PO cholecalciferol (vitamin D3) 25 mcg PO DAILY levocetirizine 5 mg PO DAILY omega 9-nzm-kff-fish oil 1,200 (144-216) mg (Fish Oil) 2 caps PO .QD 30 days rosuvastatin 10 mg PO DAILY triamcinolone acetonide 0.025% 1 appl topical DAILY PRN Tobacco use date assessed: 10/25/23 Fall risk assessment: No Falls in past year Last assessed Fall Risk: 10/31/23 HPI HPI Comments History of Present Illness Details 68-year-old lady here today complaining of acute onset of l dizziness when she gets up from a bending position, or when she turns her head towards the left when lying in bed,whichhas been present now for the last 2 days. She thinks that it might be due to her changing her pillows, switched to a flatter pillow. Complains of accompanying nausea but no vomiting, slight headache mainly on the left side of the head and pain in left side of neck when she turns peer denies any accompanying numbness, no tingling, no weakness, no chest pain, shortness of breath reported. She has been massaging left side of her neck with an arthritis cream which has been helping temporarily. [facility] Medical History Low Back Pain Essential hypertension Compression fx, lumbar spine Osteopenia of multiple sites Asymptomatic postmenopausal state Vitamin D deficiency Seasonal allergies Dyslipidemia Surgical History No pertinent past surgical history Family History Father History of heart attack Mother History of heart attack Sister Breast cancer Sister Ovarian cancer Sister Ovarian cancer Sister No problems noted. Sister No problems noted. Brother No problems noted. Brother Stroke Daughter No problems noted. 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 Bernabe Swanson, Mouna Yip, Derrek Schwab and colleagues, with an educational huong from [employer]. Review of Systems Const All systems reviewed & are unremarkable except as noted in HPI and below Physical exam (Primary Care) Vital Signs: Last Vital Signs Pulse 83 10/31/23 10:26 BP 142/80 H 10/31/23 10:26 Pulse Ox 97 10/31/23 10:26 Oxygen Delivery Method Room Air 10/31/23 10:26 BMI result Body Mass Index 26.0 Tobacco/Smoking Status: Tobacco use Status Tobacco use date assessed 10/25/23 10/31/23 10:25 Patient Tobacco Use Status Never used Tobacco 10/31/23 10:25 e-Cigarette/Vaping Use Never Used 10/31/23 10:25 Thrive Assessment: Date of Thrive Assessment Date Thrive assessed 06/21/23 10/31/23 10:25 Const General: comfortable, no acute distress, alert and Physically active Orientation/consciousness: patient oriented x3 HENMT Head: Yes normocephalic and Yes atraumatic Ears: hearing grossly normal bilaterally, external ears normal, TM's normal bilaterally and EAC's normal Face and sinus: Yes face symmetric Mouth: Normal oral and palatal mucosa present, oropharynx normal and moist mucous membranes Eyes General: appearance normal, both eyes and all related structures Neck Neck: Yes full ROM, Yes no lymphadenopathy, Yes no meningeal signs and Yes supple Resp Auscultation: clear to auscultation bilaterally Cardio Rate: regular rate Rhythm: regular rhythm Heart sounds: S1 normal heart sound present and S2 normal heart sound present Neuro General: patient oriented x3, gait normal, tone normal, moves all extremities, Normal light touch and pain sensation, no meningeal signs, no focal motor deficits and CN's II-XI intact bilaterally Assessment and Plan Assessment & Plan (1) Positional lightheadedness: Code(s): R42 - Dizziness and giddiness Plan: Prescription sent for meclizine 12.5 mg to take 1 tablet 3 times a day as needed for lightheadedness, patient cautioned that it can make her sleepy, not to drive when taking the medication. Instructed to do exercises for her neck, return to the clinic if no improvement of symptoms after 3 days, then will refer for vestibular rehab therapy (2) Cervicalgia: Code(s): M54.2 - Cervicalgia Plan: Continue massaging area with and arthritis cream if helping, patient states that she is scheduled to get a as massage tomorrow to see if this will help Medications: New meclizine 12.5 mg PO TID PRN 20 tabs 0RF dizziness Coding Level of Care Code Est Pt Level 3 (86238) Diagnoses Positional lightheadedness R42 Cervicalgia M54.2
[2023-10-31 10:26] VITALS: BP 142/80; PULSE 83; O2SAT 97; BMI 26.0
[2023-10-31 10:56] VITALS: BP 130/80
== END 2023-10-31 16:03 | disposition home or self-care (01) ==
PROVIDERS: PCP Internal Medicine; Visit Provider Internal Medicine
DX: R42 Dizziness and giddiness (principal); M54.2 Cervicalgia
CPT/HCPCS: 99213

== ENCOUNTER 2024-03-28 08:14 | Outpatient (REF) | payer OTHER, SELFPAY | END 2024-03-28 08:15 | disposition home or self-care (01) | LOC: HO.MAMMO 08:14 | PROVIDERS: PCP Internal Medicine; Visit Provider Internal Medicine | DX: Z12.31 Encounter for screening mammogram for malignant neoplasm of breast (principal) | CPT/HCPCS: 77063; 77067 ==

== ENCOUNTER → 2024-03-28 08:30 | Outpatient (BNV) | payer OTHER, SELFPAY | PROVIDERS: PCP Internal Medicine; Visit Provider Radiology Diagnostic Radiology | DX: Z12.31 Encounter for screening mammogram for malignant neoplasm of breast (principal) | CPT/HCPCS: 77063; 77067 ==

== ENCOUNTER 2024-06-19 08:53 | Outpatient (REF) | payer OTHER, SELFPAY ==
[2024-06-19 10:29] LABS: Hematocrit 43.8 % (37.0-47.0); Hemoglobin 14.7 g/dl (12.0-16.0)
[2024-06-19 11:12] LABS: Alanine Aminotransferase 71 U/L (0-31); Anion Gap 12 (12-20); Aspartate Amino Transferase 44 U/L (5-31); Blood Urea Nitrogen 8 mg/dL (9-16); Calcium 9.8 mg/dL (8.4-10.2); Carbon Dioxide 25 mmol/L (22-29); Chloride 107 mmol/L (96-108); Cholesterol 165 mg/dL (<200); Estimated Glomerular Filt Rate > 60; Glucose Fasting 89 mg/dL (60-99); HDL Cholesterol 50 mg/dL (>40); LDL Cholesterol Calculated 93 mg/dL (<100); Potassium 4.2 mmol/L (3.3-5.1); Sodium 140 mmol/L (135-145); Triglycerides 114 mg/dL (<150)
[2024-06-19 11:31] LABS: Vitamin D 25-OH Total 42.7 ng/mL (>30)
== END 2024-06-19 08:54 | disposition home or self-care (01) ==
LOC: HO.HMGCLDS 08:53
PROVIDERS: PCP Internal Medicine; Visit Provider Internal Medicine
DX: Z00.01 Encounter for general adult medical examination with abnormal findings (principal); M85.89 Other specified disorders of bone density and structure, multiple sites; I10 Essential (primary) hypertension; E78.5 Hyperlipidemia, unspecified; Z78.0 Asymptomatic menopausal state
CPT/HCPCS: 36415; 80048; 80061; 82306; 84450; 84460; 85014; 85018

== ENCOUNTER 2024-10-14 09:07 | Outpatient (REF) | payer OTHER, SELFPAY ==
[2024-10-14 13:48] LABS: Influenza A PCR NEGATIVE (Negative); Influenza B PCR NEGATIVE (Negative); Resp Syncy Virus RNA Qual PCR NEGATIVE (Negative); SARS COV2 PCR INHOUSE POSITIVE (Negative)
== END 2024-10-14 09:08 | disposition home or self-care (01) ==
LOC: HO.LAB 09:07
PROVIDERS: PCP Internal Medicine; Visit Provider Physician Assistant
DX: J06.9 Acute upper respiratory infection, unspecified (principal)
CPT/HCPCS: 0241U; 69210

== ENCOUNTER 2024-10-14 09:07 | Outpatient (AMB) | payer OTHER, SELFPAY ==
--- NOTE | 2024-10-14 09:12 | AM.OFFWIN_ITS ---
Intake Vital Signs 10/14/24 09:13 Height 5 ft 2 in Weight 146 lb BMI 26.7 BP 130/90 H Blood Pressure Location Lt brachial Position Sitting Pulse 94 Pulse Source Pulse Oximeter Temp 98.5 F Temp Source Oral Pulse Oximetry (%) 98 Oxygen Delivery Method Room Air Intake Visit Reasons: EP cough, headache, body aches, dizzy Intake Note: Patient here for cough, body aches, chest tightness that has been present since Sunday. Patient Tobacco Use Status: Never used Tobacco Allergies apple [APPLE] Allergy (Severe, Verified 10/14/24 09:14) DYSPNEA/THROAT ITCHING Do you need a note to return to daycare/school/sports/work: No HPI HPI Comments History of Present Illness Details History of Present Illness The patient is a 69-year-old female presenting with acute upper respiratory symptoms and dizziness. She reports feeling unwell for the past two days, with persistent coughing throughout the day, which worsens with the cough but does not induce shortness of breath. The patient denies any history of asthma or Chronic Obstructive Pulmonary Disease. Two months ago, she received a COVID-19 vaccination but has not tested for COVID-19 during this illness. No fever or chills are present, although she has experienced minor headaches and dizziness. She has been self-medicating with Tylenol, which has provided some relief. Upon physical examination, the left ear indicated signs of infection, attributing to her dizziness. She denies recent nausea, vomiting, or sinus pain. Physical Exam General: Cooperative, healthy appearing, comfortable and no acute distress Orientation/consciousness: Patient oriented x3 Limitations: No limitations Head: Normal to inspection Ears: Hearing grossly normal bilaterally, external ears normal, left ear canal edema and erythema, TM with purulent effusion. right ear canal with excessive wax, unable to see TM Nose: Normal external nose present, Normal nares present and No nasal discharge present Face and sinus: Normal facial exam and Yes sinuses nontender Mouth: Normal oral and palatal mucosa present and moist mucous membranes Throat: Yes tonsils normal, Yes uvula midline. Posterior oropharynx erythema Eyes: Appearance normal, both eyes and all related structures Neck: Normal visual inspection Respiratory: Clear to auscultation bilaterally. Normal respiratory effort, able to speak in complete sentences, no respiratory distress, not tachypneic, no tripod positioning and no use of accessory muscles Cardiovascular: Regular rate and rhythm. Normal S1 and S2 Skin: No rashes or lesions noted Neuro: Patient oriented x3 Extremities: Normal to inspection and Yes no clubbing, cyanosis or edema [facility] Medical History (Updated 10/14/24 @ 09:35 by Valerie Pearson PA-C) Elevated transaminase level Low Back Pain Essential hypertension Compression fx, lumbar spine Osteopenia of multiple sites Asymptomatic postmenopausal state Vitamin D deficiency Seasonal allergies Dyslipidemia Surgical History No pertinent past surgical history Family History Father History of heart attack Mother History of heart attack Sister Breast cancer Sister Ovarian cancer Sister Ovarian cancer Sister No problems noted. Sister No problems noted. Brother No problems noted. Brother Stroke Daughter No problems noted. Social History Housing: Other Housing Other:: [facility] home Alcohol intake: never Patient Tobacco Use Status: Never used Tobacco e-Cigarette/Vaping Use: Never Used Current occupational status: employed Current occupation: [employer] Cognitive needs: No Hearing needs: No Vision needs: Yes Review of Systems Const All systems reviewed & are unremarkable except as noted in HPI and below Physical Exam Vital Signs: Last Vital Signs Temp 98.5 F 10/14/24 09:13 Pulse 94 10/14/24 09:13 BP 130/90 H 10/14/24 09:13 Pulse Ox 98 10/14/24 09:13 Oxygen Delivery Method Room Air 10/14/24 09:13 BMI result Body Mass Index 26.7 Office Procedures Cerumen Removal From which ear canal was the cerumen removed: right Removal: irrigation and otoscope w/curette Notes: patient tolerated procedure well, no complications and ear canal clear [id number] Irrigation/Lavage Assessment & Plan Assessment & Plan (1) Otitis media: Code(s): H66.90 - Otitis media, unspecified, unspecified ear Qualifiers: Otitis media type: suppurative Chronicity: acute Laterality: right Recurrence: non-recurrent Spontaneous tympanic membrane rupture: without spontaneous rupture Qualified Code(s): H66.001 - Acute suppurative otitis media without spontaneous rupture of ear drum, right ear Plan: - Prescribe a course of oral amoxicillin for the left ear infection displayed. This antibiotic will help treat the bacterial infection and alleviate dizziness. (2) URI (upper respiratory infection): Code(s): J06.9 - Acute upper respiratory infection, unspecified Qualifiers: URI type: unspecified URI Qualified Code(s): J06.9 - Acute upper respiratory infection, unspecified Plan: Viral Upper Respiratory Infection: - Prescribe Tessalon Perles to suppress nighttime cough, to be taken as needed, particularly before bedtime. - Instruct patient to continue using [id number] medications such as Tylenol and decongestants as needed for symptom relief. Diagnostics: - Perform nasal swabs for influenza, COVID-19, and Respiratory Syncytial Virus RSV) to determine potential viral causative agents. Results to be communicated following analysis. (3) Impacted cerumen of right ear: Code(s): H61.21 - Impacted cerumen, right ear Plan: - Able to clear cerumen with irrigation. - Advise on utilizing Debrox drops to prevent cerumen blockage in the ears, aiding in the clearing of excessive wax. Orders: Orders SARS-CoV2/FLU/RSV Today J06.9 - Acute upper respiratory infection, unspecified Medications: New amoxicillin 875 mg PO Q12H 10 tabs 0RF benzonatate 200 mg PO TID PRN 14 caps 0RF cough Coding Level of Care Code Est Pt Level 4 (26819) Diagnoses Non-recurrent acute suppurative otitis media of right ear without spontaneous rupture of tympanic membrane H66.001 Otitis media type: suppurative Chronicity: acute Laterality: right Recurrence: non-recurrent Spontaneous tympanic membrane rupture: without spontaneous rupture Upper respiratory tract infection, unspecified type J06.9 URI type: unspecified URI Impacted cerumen of right ear H61.21 CPT Codes Office Procedure - CPT: 41476-Xys Irrigation/Lavage ([id number])
[2024-10-14 09:13] VITALS: BP 130/90; PULSE 94; TEMP 36.9; O2SAT 98; BMI 26.7
== END 2024-10-14 09:43 | disposition home or self-care (01) ==
PROVIDERS: PCP Internal Medicine; Visit Provider Physician Assistant
DX: H66.001 Acute suppurative otitis media without spontaneous rupture of ear drum, right ear (principal); J06.9 Acute upper respiratory infection, unspecified; H61.21 Impacted cerumen, right ear

== ENCOUNTER 2024-10-23 09:07 | Outpatient (REF) | payer MEDICARE, SELFPAY ==
[2024-10-23 13:58] LABS: Alanine Aminotransferase 56 U/L (0-31); Albumin Level 4.4 g/dL (3.5-5.0); Alkaline Phosphatase 70 U/L (39-117); Aspartate Amino Transferase 44 U/L (5-31); Bilirubin Direct 0.2 mg/dL (0.0-0.5); Bilirubin Total 0.7 mg/dL (0.0-1.0); Cholesterol 258 mg/dL (<200); HDL Cholesterol 51 mg/dL (>40); LDL Cholesterol Calculated 169 mg/dL (<100); Total Protein 7.6 g/dL (6.5-8.0); Triglycerides 190 mg/dL (<150)
== END 2024-10-23 09:08 | disposition home or self-care (01) ==
LOC: HO.HMGCLDS 09:07
PROVIDERS: PCP Internal Medicine; Visit Provider Internal Medicine
DX: R74.01 Elevation of levels of liver transaminase levels (principal); E78.5 Hyperlipidemia, unspecified
CPT/HCPCS: 36415; 80061; 80076

== ENCOUNTER 2024-10-30 08:20 | Outpatient (AMB) | payer OTHER, SELFPAY ==
[2024-10-30 08:51] VITALS: BP 135/80; PULSE 85; O2SAT 98; BMI 26.3
--- NOTE | 2024-10-30 08:51 | A.OFFPC_ITS ---
Vital Signs 10/30/24 08:51 Height 5 ft 2 in Weight 144 lb BMI 26.3 BP 135/80 Blood Pressure Location Lt brachial Position Sitting Pulse 85 Pulse Source Pulse Oximeter Pulse Oximetry (%) 98 Oxygen Delivery Method Room Air Intake Visit Reasons: PE Intake Note: Pt is here today for her PE: Last mammogram 03/28/24, bone density scan 07/12/23, colonoscopy 12/20/18 Allergies apple [APPLE] Allergy (Severe, Verified 10/30/24 09:09) DYSPNEA/THROAT ITCHING Medication List - Last Reconciled 10/30/24 by Andreia Euceda MD ascorbic acid (vitamin C) mg PO benzonatate 200 mg PO TID PRN cholecalciferol (vitamin D3) 25 mcg PO DAILY levocetirizine 5 mg PO DAILY meclizine 12.5 mg PO TID PRN omega 4-cyg-xsk-fish oil 1,200 (144-216) mg (Fish Oil) 2 caps PO .QD 30 days rosuvastatin 10 mg PO DAILY triamcinolone acetonide 0.025% 1 appl topical DAILY PRN Tobacco use date assessed: 10/30/24 Fall risk assessment: No Falls in past year Last assessed Fall Risk: 10/30/24 Dental Screening Dental Screen Date: 10/30/24 Did you have a dental visit in the last 12 months?: No Did you have a dental problem in the last 6 months where you did not have access to dental care?: No Was dental information given to patient?: No HPI PE HPI Details 69 year old Lady here today for physical exam. She was recently diagnosed with COVID 10/14/2024 and was placed on Paxlovid. States that she has had all her vaccines including her COVID booster prior to getting the infection and only had mild upper respiratory symptoms. She was prescribed Paxlovid at the walk-in clinic with symptoms resolving right away. She however stopped taking her rosuvastatin early this month as she has been placed in Paxlovid. Latest fasting lipids showed marked elevation in her lipid and liver enzyme levels. Still having some nasal congestion, would like a prescription for either Flonase or Astelin nasal spray . She is up-to-date with her screenin g mammogram done 03/28/2024 and had a bone density scan done 07/12/2023 which showed osteopenia in left femoral neck and lumbar spine. No history of fractures . She is up-to-date with her screening colonoscopy done by Dr. Perkins in 12/20/2018 which showed normal findings, repeat due again in 2028. She goes to [facility], last appointment was 10/02/2024 which showed presence of retinal hemorrhage OD and epiretinal membrane OD with posterior vitreous detachment OU and glaucoma suspect. Patient going to be observed for now. Denies any change in vision. [facility] Medical History Elevated transaminase level Low Back Pain Essential hypertension Compression fx, lumbar spine Osteopenia of multiple sites Asymptomatic postmenopausal state Vitamin D deficiency Seasonal allergies Dyslipidemia Surgical History No pertinent past surgical history Family History Father History of heart attack Mother History of heart attack Sister Breast cancer Sister Ovarian cancer Sister Ovarian cancer Sister No problems noted. Sister No problems noted. Brother No problems noted. Brother Stroke Daughter No problems noted. Social History Housing: Other Housing Other:: moble home Alcohol intake: never Patient Tobacco Use Status: Never used Tobacco e-Cigarette/Vaping Use: Never Used Current occupational status: employed Current occupation: [employer] Cognitive needs: No Hearing needs: No Vision needs: Yes Questionnaire PHQ-9 Over the last 2 weeks, how often have you been bothered by any of the following problems? 1. Little interest or pleasure in doing things: not at all 2. Feeling down, depressed, or hopeless: not at all 3. Trouble falling or staying asleep, or sleeping too much: several days 4. Feeling tired or having little energy: several days 5. Poor appetite or overeating: not at all 6. Feeling bad about yourself - or that you are a failure or have let yourself or your family down: not at all 7. Trouble concentrating on things, such as reading the newspaper or watching television: not at all 8. Moving or speaking so slowly that other people could have noticed. Or the opposite - being so fidgety or restless that you have been moving around a lot more than usual: not at all 9. Thoughts that you would be better off or of hurting yourself in some way: not at all Total score: 2 Depression Screening Interpretation: Negative Depression Screening Done: Yes Source: Developed by Drs. Bernabe Swansno, Mouna Yip, Derrek Schwab and colleagues, with an educational huong from [employer]. Thrive Questionnaire Date Thrive assessed: 10/30/24 I am a: Patient What is your living situation today?: I have a steady place to live Within the past 12 months, did the food you bought not last and you didn't have the money to get more?: I choose not to answer this question Within the past 12 months, did you worry whether your food would run out before you got money to buy more?: I choose not to answer this question Do you have trouble paying for medicines?: I choose not to answer this question Do you have trouble getting transportation to medical appointments?: No Do you have trouble paying your heating and electricity bill?: No Do you have trouble taking care of your child, family member or friend?: No Do you have trouble with day-to-day activities such as bathing, preparing meals, shopping, managing finances, etc.?: No Are you currently unemployed and looking for a job?: No Are you interested in more education?: No Please select the resources that you would like help with: None Currently or been in a relationship where the following occur: I choose not to answer THRIVE Score: 0 AUDIT C Alcohol Use Questionnaire (AUDIT-C) 1. How often do you have a drink containing alcohol?: Monthly or less 2. How many drinks containing alcohol do you have on a typical day when you are drinking?: 1 or 2 3. How often do you have six or more drinks on one occasion?: Never Total Score: 1 CARLOS-7 AMB Questionnaire CARLOS-7 Date CARLOS - 7 assessed: 10/30/24 Feeling nervous, anxious, or on edge: 0 = Not at all Not being able to stop or control worryin = Not at all Worrying too much about different things: 0 = Not at all Trouble relaxin = Not at all Being so restless that it is hard to sit still: 0 = Not at all Becoming easily annoyed or irritable: 0 = Not at all Feeling afraid as if something awful might happen: 0 = Not at all Total CARLOS-7 score (0-4 normal; 5-9 mild; 10-14 moderate; 15-21 severe): 0 Source: Developed by Drs. Bernabe Swanson, Mouna Yip, Derrek Schwab and colleagues, with an educational huong from [employer]. CARLOS-7 Assessment Billing CARLOS-7 Assessment Tool: CARLOS-7 Assessment 99203 Review of Systems Const Denies fever(s) and Denies weakness Eyes Details: goes to [facility] , found to have retinal hemorrhage , glaucoma suspect Reports blurry vision ENT Denies dizziness and Denies disequilibrium Card Denies chest pain, Denies lightheadedness and Denies dyspnea Resp Denies chest congestion, Denies cough and Denies dyspnea GI Denies abdominal pain, Denies change in bowel habits and Denies heartburn Reports no additional complaints Musc Reports back pain (Occasional low back pain, nonradiating) Skin/Breast Details: No additional complain Neuro Denies dizziness, Denies lack of coordination, Denies focal weakness, Denies Sensory deficit (Neuro), Denies paresthesias, Denies disequilibrium and Denies weakness Psych Reports no additional complaints Endo Reports no additional complaints Doug/Lymph Reports no additional complaints Aller/Immun Reports seasonal rhinorrhea Physical exam (Primary Care) Vital Signs: Last Vital Signs Pulse 85 10/30/24 08:51 BP 135/80 10/30/24 08:51 Pulse Ox 98 10/30/24 08:51 Oxygen Delivery Method Room Air 10/30/24 08:51 BMI result Body Mass Index 26.3 Tobacco/Smoking Status: Tobacco use Status Tobacco use date assessed 10/30/24 10/30/24 08:54 Patient Tobacco Use Status Never used Tobacco 10/30/24 08:54 e-Cigarette/Vaping Use Never Used 10/30/24 08:54 PHQ-9: PHQ-9 Score PHQ-9: Total score 2 10/30/24 09:55 Depression Screening Interpretation: Negative Thrive Assessment: Date of Thrive Assessment Date Thrive assessed 10/30/24 10/30/24 09:55 Currently or been in a relationship where the following occur: I choose not to answer Advance Care Planning discussion: Completed/Scanned Date of discussion: 10/30/24 Who was present: Patient Forms completed: Health Care Proxy and MOLST Time spent: 16-45 minutes Actual minutes spent: 5 Const General: comfortable, no acute distress, alert and Physically active Orientation/consciousness: patient oriented x3 [facility] Head: Yes normocephalic Ears: hearing grossly normal bilaterally, external ears normal, TM's normal bilaterally and EAC's normal Face and sinus: Yes face symmetric Mouth: Normal oral and palatal mucosa present, oropharynx normal and moist mucous membranes Eyes General: appearance normal, both eyes and all related structures Neck Neck: Yes full ROM, Yes no lymphadenopathy, Yes no meningeal signs and Yes supple Chest Breast/axilla palpation: normal palpation of the breasts Resp Auscultation: clear to auscultation bilaterally Cardio Rate: regular rate Rhythm: regular rhythm Heart sounds: S1 normal heart sound present and S2 normal heart sound present GI Other: Normal bowel sounds, soft, nontender with no mass palpated General: Yes no CVA tenderness and Yes deferred Back/Spine/Pelvis Other: Full range of motion, no tenderness on palpation over paraspinal muscles in lumbar area Back: no CVA tenderness Skin General skin exam: no rashes or lesions noted Neuro General: patient oriented x3, gait normal, tone normal, moves all extremities, Normal light touch and pain sensation, no meningeal signs, no focal motor deficits and CN's II-XI intact bilaterally Sensory Exam: No Sensory deficit (Neuro) Extrem General: Yes full ROM, Yes no joint enlargement, Yes no clubbing, cyanosis or edema, Yes no calf tenderness and Yes normal gait Psych Appearance: grossly normal and well kempt Mental Status: mental status grossly normal Speech and movement: Normal speech and movement present Affect: normal affect Attitude: cooperative Thought process: Normal thought process present Thought content: Normal thought content present Results Reviewed Results Reviewed: Laboratory Tests 06/19/24 09:00 Hgb 14.7 Hct 43.8 Name: Shelby Puentes Age/Sex: 69/F : 1955 Unit#: [id number] Attend Dr: Andreia Euceda MD Re10/23/24 Status: DEP REF Location: [facility] Disch: SPEC : [id number] JEIMY: 12/12/24-1018 STATUS: COMP REQ : [id number] RECD: 10/23/[address]: Andreia Euceda MD COMP: 10/23/24 ENTERED: 10/23/[address]: ORDERED: Liver Panel, Lipid Panel Test Result Flag Reference Total Bili 0.7 0.0-1.0 mg/dL Direct Bili 0.2 0.0-0.5 mg/dL AST (GOT) 44 H 5-31 U/L ALT (GPT) 56 H 0-31 U/L Protein, Total 7.6 6.5-8.0 g/dL Alb 4.4 3.5-5.0 g/dL Triglyceride 190 H <150 mg/dL Desirable Triglyceride: less than 150 mg/dL Borderline High Triglyceride 150-199 mg/dL High Triglyceride: 200-499 mg/dL Very High Triglyceride: greater than or equal to 5OO mg/dL Cholesterol 258 H <200 mg/dL Desirable Cholesterol: less than 200 mg/dL Borderline High Cholesterol: 200-239 mg/dL High Cholesterol: greater than 239 mg/dL LDL Calculated 169 H <100 mg/dL Desirable LDL: less than 100 mg/dL Near Optimal/Above Optimal LDL: 110-129 mg/dL Borderline High LDL: 130-159 mg/dL High LDL: 160-189 mg/dL Very High LDL: greater than or equal to 190 mg/dL HDL 51 >40 mg/dL Desirable HDL: greater than 40 mg/dL Note: This HDL assay may give artificially low results in patients with liver disease. Alk Phos 70 39-117 U/L Name: Shelby Puentes Age/Sex: 69/F : 1955 Unit#: [id number] Attend Dr: Andreia Euceda MD Re06/19/24 Status: DEP REF Location: [facility] Disch: SPEC : [id number] JEIMY: 06/19/24 STATUS: COMP REQ : [id number] RECD: 06/19/24-[address]: Andreia Euceda MD COMP: 06/19/24113 ENTERED: 06/19/[address]: ORDERED: Met Prof Fast, AST, ALT, Lipid Panel, Vitamin D 25-OH Test Result Flag Reference Sodium 140 135-145 mmol/L Potassium 4.2 3.3-5.1 mmol/L CL 107 96-108 mmol/L CO2 25 22-29 mmol/L Gap 12 12-20 BUN 8 L 9-16 mg/dL Creat 0.79 0.5-1.4 mg/dL EGFR > 60 NOTE: For -[place] individuals, multiply the result by 1.210. Chronic Kidney Disease: Estimated GFR < 60 mL/min/1.73m2 Severe Kidney Disease: Estimated GFR < 15 mL/min/1.73m2 FBS 89 60-99 mg/dL CA 9.8 8.4-10.2 mg/dL AST (GOT) 44 H 5-31 U/L ALT (GPT) 71 H 0-31 U/L Triglyceride 114 <150 mg/dL Desirable Triglyceride: less than 150 mg/dL Borderline High Triglyceride 150-199 mg/dL High Triglyceride: 200-499 mg/dL Very High Triglyceride: greater than or equal to 5OO mg/dL Cholesterol 165 <200 mg/dL Desirable Cholesterol: less than 200 mg/dL Borderline High Cholesterol: 200-239 mg/dL High Cholesterol: greater than 239 mg/dL LDL Calculated 93 <100 mg/dL Desirable LDL: less than 100 mg/dL Near Optimal/Above Optimal LDL: 110-129 mg/dL Borderline High LDL: 130-159 mg/dL High LDL: 160-189 mg/dL Very High LDL: greater than or equal to 190 mg/dL HDL 50 >40 mg/dL Desirable HDL: greater than 40 mg/dL Note: This HDL assay may give artificially low results in patients with liver disease. Vit D 25-OH Tot 42.7 >30 ng/mL Health Based Reference Values* < 20 ng/mL Deficient 20-30 ng/mL Insufficient > 30 ng/mL Sufficient *Maggy PARSONS. N Engl J Med. 2007;357:266-280 Care must be taken in interpreting Vitamin D results from different laboratories and methodologies. Published data demonstrated that results from patients undergoing hemodialysis may show a negative bias when tested with various automated 25-OH vitamin D assays when compared to LC-MS/MS. Coding Level of Care Code Est Pt Prev Care >65y(74683) Diagnoses Encounter for general adult medical examination with abnormal findings Z00.01 Upper respiratory tract infection, unspecified type J06.9 URI type: unspecified URI Dyslipidemia E78.5 Seasonal allergies J30.2 Osteopenia of multiple sites M85.89 Elevated transaminase level R74.01 Advanced directives, counseling/discussion Z71.89 Additional Codes CARLOS-7 Assessment Billing - CARLOS-7 Assessment Tool: CARLOS-7 Assessment 25672 ([id number]) Vital Signs *Quality* - Advance Care Planning discussion: Completed/Scanned ([id number]) Vital Signs *Quality* - Time spent: 16-45 minutes ([id number]) Assessment & Plan Assessment & Plan (1) Encounter for general adult medical examination with abnormal findings: Code(s): Z00.01 - Encounter for general adult medical examination with abnormal findings Category: Medical Plan: Recent fasting lab results reviewed with patient.. Recommended dental visit every 6 months and up-to-date with her regular eye exams, goes to [facility], currently being observed for retinal hemorrhage in right eye as well as posterior vitreous detachment and glaucoma suspect Take adequate calcium in diet and vitamin-D 3 at 2000 IU per cap once a day, in addition to weight- bearing exercises to help maintain good muscle tone and weight control. Instructed to do self-breast exam, and continue to get yearly mammogram, due for her bone density scan next year. Up-to-date with all her vaccinations and colonoscopy is not due until 2028. (2) URI (upper respiratory infection): Code(s): J06.9 - Acute upper respiratory infection, unspecified Category: Medical Qualifiers: URI type: unspecified URI Qualified Code(s): J06.9 - Acute upper respiratory infection, unspecified Plan: Prescription sent for azelastine nasal spray, to use 1-2 sprays per nostril twice a day as needed for nasal congestion and rhinorrhea (3) Dyslipidemia: Code(s): E78.5 - Hyperlipidemia, unspecified Category: Medical Plan: Recent fasting lab results reviewed with patient with marked elevation in her lipid levels and liver enzymes has been off rosuvastatin for at least 3 weeks now restart back on on it today. Recheck another fasting lipid panel in 3 months. Forced importance of following low-cholesterol diet and getting regular exercise (4) Seasonal allergies: Code(s): J30.2 - Other seasonal allergic rhinitis Category: Medical Plan: Started on Azelastine nasal spray (5) Osteopenia of multiple sites: Comment: Seen on initial bone density scan done December 2020 Code(s): M85.89 - Other specified disorders of bone density and structure, multiple sites Category: Medical Plan: Recheck another bone density scan next year, reinforced importance of doing regular weight-bearing exercise, continue taking calcium vitamin-D supplements (6) Elevated transaminase level: Code(s): R74.01 - Elevation of levels of liver transaminase levels Category: Medical Plan: Repeat liver enzymes again in 3 month (7) Advanced directives, counseling/discussion: Code(s): Z71.89 - Other specified counseling Plan: Initiated the conversation about Advanced Directives. Advanced Directives help patients prepare for current and future decisions about their medical treatment and place of care. Discussed with patient that it is a process where a patients current condition and prognosis are reviewed, their wishes for information regarding their illness are elicited, and likely medical dilemmas are presented and options discussed. Healthcare proxy form and MOLST form completed today. These forms can be amended as needed, reviewed yearly and make changes as needed Orders: Orders Vitamin D 25-OH Total 01/10/25 M85.89 - Other specified disorders of bone density and structure, multiple sites, Z78.0 - Asymptomatic menopausal state Lipid Panel 01/10/25 E78.5 - Hyperlipidemia, unspecified, M85.89 - Other specified disorders of bone density and structure, multiple sites, R74.01 - Elevation of levels of liver transaminase levels Alanine Aminotransferase 01/10/25 E78.5 - Hyperlipidemia, unspecified, M85.89 - Other specified disorders of bone density and structure, multiple sites, R74.01 - Elevation of levels of liver transaminase levels Aspartate Amino Transferase 01/10/25 E78.5 - Hyperlipidemia, unspecified, M85.89 - Other specified disorders of bone density and structure, multiple sites, R74.01 - Elevation of levels of liver transaminase levels Medications: New azelastine administer into each nostril 2 sprays intranasal BID 30 mL 1RF J06.9 - Acute upper respiratory infection, unspecified
== END 2024-10-30 09:43 | disposition home or self-care (01) ==
PROVIDERS: PCP Internal Medicine; Visit Provider Internal Medicine
DX: Z00.01 Encounter for general adult medical examination with abnormal findings (principal); J06.9 Acute upper respiratory infection, unspecified; E78.5 Hyperlipidemia, unspecified; J30.2 Other seasonal allergic rhinitis; M85.89 Other specified disorders of bone density and structure, multiple sites; R74.01 Elevation of levels of liver transaminase levels; Z71.89 Other specified counseling; Z00.00 Encounter for general adult medical examination without abnormal findings

== ENCOUNTER → 2024-10-30 08:20 | Outpatient (BNVA) | payer OTHER, SELFPAY | PROVIDERS: PCP Internal Medicine; Visit Provider Internal Medicine | DX: Z00.01 Encounter for general adult medical examination with abnormal findings (principal); J06.9 Acute upper respiratory infection, unspecified; E78.5 Hyperlipidemia, unspecified; J30.2 Other seasonal allergic rhinitis; M85.89 Other specified disorders of bone density and structure, multiple sites; R74.01 Elevation of levels of liver transaminase levels; Z71.89 Other specified counseling | CPT/HCPCS: 96127 ==

== ENCOUNTER 2025-02-05 09:25 | Outpatient (REF) | payer OTHER, SELFPAY ==
[2025-02-05 13:58] LABS: Alanine Aminotransferase 45 U/L (0-31); Aspartate Amino Transferase 40 U/L (5-31); Cholesterol 182 mg/dL (<200); HDL Cholesterol 59 mg/dL (>40); LDL Cholesterol Calculated 96 mg/dL (<100); Triglycerides 137 mg/dL (<150)
[2025-02-05 14:03] LABS: Vitamin D 25-OH Total 44.7 ng/mL (>30)
== END 2025-02-05 09:26 | disposition home or self-care (01) ==
LOC: HO.HMGCLDS 09:25
PROVIDERS: PCP Internal Medicine; Visit Provider Internal Medicine
DX: Z78.0 Asymptomatic menopausal state (principal); R74.01 Elevation of levels of liver transaminase levels; M85.89 Other specified disorders of bone density and structure, multiple sites; E78.5 Hyperlipidemia, unspecified
CPT/HCPCS: 36415; 80061; 82306; 84450; 84460

== ENCOUNTER 2025-02-12 08:04 | Outpatient (AMB) | payer OTHER, SELFPAY ==
--- NOTE | 2025-02-12 08:22 | MHC.PC.OV ---
Vital Signs 02/12/25 08:25 Height 5 ft 2 in Weight 144 lb BMI 26.3 BP 132/72 Blood Pressure Location Rt brachial Position Sitting Respiration 15 Pulse 79 Pulse Source Pulse Oximeter Temp 97.9 F Temp Source Oral Pulse Oximetry (%) 100 Oxygen Delivery Method Room Air Intake Visit Reasons: 3 months f/up Intake Note: Pt is here today for her 3mo. f/u labs Allergies apple [APPLE] Allergy (Severe, Verified 02/12/25 08:31) DYSPNEA/THROAT ITCHING Medication List - Last Reconciled 02/12/25 by Andreia Euceda MD ascorbic acid (vitamin C) mg PO azelastine 2 sprays intranasal BID cholecalciferol (vitamin D3) 25 mcg PO DAILY levocetirizine 5 mg PO DAILY meclizine 12.5 mg PO TID PRN omega 5-bdt-aua-fish oil 1,200 (144-216) mg (Fish Oil) 2 caps PO .QD 30 days rosuvastatin 10 mg PO DAILY triamcinolone acetonide 0.025% 1 appl topical DAILY PRN Tobacco use date assessed: 02/12/25 Fall risk assessment: No Falls in past year Last assessed Fall Risk: 02/12/25 Dental Screening Dental Screen Date: 02/12/25 Did you have a dental visit in the last 12 months?: No Did you have a dental problem in the last 6 months where you did not have access to dental care?: No Was dental information given to patient?: No HPI 3 months f/up HPI Details 69-year-old lady here today for follow-up on her hypertension and hyperlipidemia. Currently taking rosuvastatin 10 mg daily Onemo 3 fatty acid supplements 2 capsules once a day, will blood pressure stable and controlled with diet and exercise. She has been feeling well, denies any muscle pain from taking statin except for occasional low back pain when she gets up after sitting or lying down for long time. Takes Tylenol which affords relief. She is due now for her breast cancer screening and bone density scan, has history of osteopenia in multiple sites on last DEXA scan done in 2022, no history of fracture [facility] Medical History Elevated transaminase level Low Back Pain Essential hypertension Compression fx, lumbar spine Osteopenia of multiple sites Asymptomatic postmenopausal state Vitamin D deficiency Seasonal allergies Dyslipidemia Surgical History No pertinent past surgical history Family History Father History of heart attack Mother History of heart attack Sister Breast cancer Sister Ovarian cancer Sister Ovarian cancer Sister No problems noted. Sister No problems noted. Brother No problems noted. Brother Stroke Daughter No problems noted. Social History Housing: Other Housing Other:: moble home Alcohol intake: never Patient Tobacco Use Status: Never used Tobacco e-Cigarette/Vaping Use: Never Used Current occupational status: employed Current occupation: [employer] Cognitive needs: No Hearing needs: No Vision needs: Yes Questionnaire PHQ-9 Over the last 2 weeks, how often have you been bothered by any of the following problems? 1. Little interest or pleasure in doing things: not at all 2. Feeling down, depressed, or hopeless: not at all 3. Trouble falling or staying asleep, or sleeping too much: not at all 4. Feeling tired or having little energy: several days 5. Poor appetite or overeating: not at all 6. Feeling bad about yourself - or that you are a failure or have let yourself or your family down: not at all 7. Trouble concentrating on things, such as reading the newspaper or watching television: not at all 8. Moving or speaking so slowly that other people could have noticed. Or the opposite - being so fidgety or restless that you have been moving around a lot more than usual: not at all 9. Thoughts that you would be better off or of hurting yourself in some way: not at all Total score: 1 Depression Screening Interpretation: Negative Depression Screening Done: Yes 49927 - PHQ-9 Billing: Yes Source: Developed by Drs. Bernabe Swanson, Mouna Yip, Derrek Schwab and colleagues, with an educational huong from [employer]. Thrive Questionnaire Date Thrive assessed: 02/12/25 I am a: Patient What is your living situation today?: I have a steady place to live Within the past 12 months, did the food you bought not last and you didn't have the money to get more?: Often true Within the past 12 months, did you worry whether your food would run out before you got money to buy more?: Often true Do you have trouble paying for medicines?: No Do you have trouble getting transportation to medical appointments?: No Do you have trouble paying your heating and electricity bill?: No Do you have trouble taking care of your child, family member or friend?: No Do you have trouble with day-to-day activities such as bathing, preparing meals, shopping, managing finances, etc.?: No Are you currently unemployed and looking for a job?: No Are you interested in more education?: No Please select the resources that you would like help with: None Currently or been in a relationship where the following occur: No concerns reported THRIVE Score: 2 AUDIT C Alcohol Use Questionnaire (AUDIT-C) 1. How often do you have a drink containing alcohol?: Never Total Score: 0 CARLOS-7 AMB Questionnaire CARLOS-7 Date CARLOS - 7 assessed: 02/12/25 Feeling nervous, anxious, or on edge: 0 = Not at all Not being able to stop or control worryin = Not at all Worrying too much about different things: 1 = Several days Trouble relaxin = Not at all Being so restless that it is hard to sit still: 0 = Not at all Becoming easily annoyed or irritable: 0 = Not at all Feeling afraid as if something awful might happen: 1 = Several days Total CARLOS-7 score (0-4 normal; 5-9 mild; 10-14 moderate; 15-21 severe): 2 Source: Developed by Drs. Bernabe Swanson, Mouna Yip, Derrek Schwab and colleagues, with an educational huong from [employer]. CARLOS-7 Assessment Billing CARLOS-7 Assessment Tool: CARLOS-7 Assessment 17772 Review of Systems Const Denies fever(s) and Denies weakness Eyes Details: goes to [facility] , found to have retinal hemorrhage , glaucoma suspect Reports blurry vision ENT Denies dizziness and Denies disequilibrium Card Denies chest pain, Denies lightheadedness and Denies dyspnea Resp Denies chest congestion, Denies cough and Denies dyspnea GI Denies abdominal pain, Denies change in bowel habits and Denies heartburn Reports no additional complaints Musc Reports back pain (Occasional low back pain, nonradiating) Skin/Breast Denies breast pain, Denies breast mass and Denies rash Neuro Denies dizziness, Denies Sensory deficit (Neuro), Denies disequilibrium and Denies weakness Psych Reports no additional complaints Endo Reports no additional complaints Doug/Lymph Reports no additional complaints Aller/Immun Reports seasonal rhinorrhea Physical exam (Primary Care) Vital Signs: Last Vital Signs Temp 97.9 F 02/12/25 08:25 Pulse 79 02/12/25 08:25 Resp 15 02/12/25 08:25 BP 132/72 02/12/25 08:25 Pulse Ox 100 02/12/25 08:25 Oxygen Delivery Method Room Air 02/12/25 08:25 BMI result Body Mass Index 26.3 Tobacco/Smoking Status: Tobacco use Status Tobacco use date assessed 10/30/24 02/12/25 08:23 Patient Tobacco Use Status Never used Tobacco 02/12/25 08:23 e-Cigarette/Vaping Use Never Used 02/12/25 08:23 PHQ-9: PHQ-9 Score PHQ-9: Total score 1 02/12/25 08:23 Depression Screening Interpretation: Negative Thrive Assessment: Date of Thrive Assessment Date Thrive assessed 10/30/24 02/12/25 08:23 Currently or been in a relationship where the following occur: No concerns reported Const General: comfortable, no acute distress, alert and Physically active Orientation/consciousness: patient oriented x3 HENMT Head: Yes normocephalic Ears: hearing grossly normal bilaterally, external ears normal, TM's normal bilaterally and EAC's normal Face and sinus: Yes face symmetric Mouth: Normal oral and palatal mucosa present, oropharynx normal and moist mucous membranes Eyes General: appearance normal, both eyes and all related structures Neck Neck: Yes full ROM, Yes no lymphadenopathy, Yes no meningeal signs and Yes supple Chest Breast/axilla palpation: normal palpation of the breasts Resp Auscultation: clear to auscultation bilaterally Cardio Rate: regular rate Rhythm: regular rhythm Heart sounds: S1 normal heart sound present and S2 normal heart sound present GI Other: Normal bowel sounds, soft, nontender with no mass palpated General: Yes no CVA tenderness and Yes deferred Back/Spine/Pelvis Back: no CVA tenderness Skin General skin exam: no rashes or lesions noted Neuro General: patient oriented x3, gait normal, tone normal, moves all extremities, Normal light touch and pain sensation, no meningeal signs, no focal motor deficits and CN's II-XI intact bilaterally Sensory Exam: No Sensory deficit (Neuro) Extrem General: Yes full ROM, Yes no joint enlargement, Yes no clubbing, cyanosis or edema, Yes no calf tenderness and Yes normal gait Psych Appearance: grossly normal and well kempt Mental Status: mental status grossly normal Speech and movement: Normal speech and movement present Affect: normal affect Attitude: cooperative Thought process: Normal thought process present Thought content: Normal thought content present Results Reviewed Results Reviewed: Name: Shelby Puentes Age/Sex: 69/F : 1955 Unit#: [id number] Attend Dr: Andreia Euceda MD Re02/05/25 Status: DEP REF Location: [facility] Disch: SPEC : [id number] JEIMY: 02/05/25 STATUS: COMP REQ : [id number] RECD: 02/05/[address]: Andreia Euceda MD COMP: 02/05/25 ENTERED: 02/05/[address]: ORDERED: AST, ALT, Lipid Panel, Vitamin D 25-OH Test Result Flag Reference AST (GOT) 40 H 5-31 U/L ALT (GPT) 45 H 0-31 U/L Triglyceride 137 <150 mg/dL Desirable Triglyceride: less than 150 mg/dL Borderline High Triglyceride 150-199 mg/dL High Triglyceride: 200-499 mg/dL Very High Triglyceride: greater than or equal to 5OO mg/dL Cholesterol 182 <200 mg/dL Desirable Cholesterol: less than 200 mg/dL Borderline High Cholesterol: 200-239 mg/dL High Cholesterol: greater than 239 mg/dL LDL Calculated 96 <100 mg/dL Desirable LDL: less than 100 mg/dL Near Optimal/Above Optimal LDL: 110-129 mg/dL Borderline High LDL: 130-159 mg/dL High LDL: 160-189 mg/dL Very High LDL: greater than or equal to 190 mg/dL HDL 59 >40 mg/dL Desirable HDL: greater than 40 mg/dL Note: This HDL assay may give artificially low results in patients with liver disease. Vitamin D 25-OH 44.7 >30 ng/mL Health Based Reference Values* < 20 ng/mL Deficient 20-30 ng/mL Insufficient > 30 ng/mL Sufficient Coding Level of Care Code Est Pt Level 4 (91088) Complex EM visit Add On G2211 Diagnoses Dyslipidemia E78.5 Elevated transaminase level R74.01 Essential hypertension I10 Osteopenia of multiple sites M85.89 Additional Codes CARLOS-7 Assessment Billing - CARLOS-7 Assessment Tool: CARLOS-7 Assessment 26681 ([id number]) PHQ-9 - 88779 - PHQ-9 Billing: Yes ([id number]) Assessment & Plan Assessment & Plan (1) Dyslipidemia: Code(s): E78.5 - Hyperlipidemia, unspecified Category: Medical Plan: Her fasting lipids are now within normal limits, will continue on rosuvastatin 10 mg daily and Onemo 3 fatty acid supplements. Continue with adherence to healthy eating habits and regular exercise. Will repeat another fasting lipid panel in October prior to her next appointment (2) Elevated transaminase level: Code(s): R74.01 - Elevation of levels of liver transaminase levels Category: Medical Plan: Slight elevations in liver enzymes,, will continue to monitor (3) Essential hypertension: Code(s): I10 - Essential (primary) hypertension Category: Medical Plan: Blood pressure at goal of less than 130/80. Continue with current medication. Reinforced importance of following a low sodium diet, getting regular exercise, and lowering stress levels. (4) Osteopenia of multiple sites: Comment: Seen on initial bone density scan done December 2020 Code(s): M85.89 - Other specified disorders of bone density and structure, multiple sites Category: Medical Plan: Ordered repeat bone density scan to be scheduled together with screening mammogram. Emphasized importance of doing regular weight-bearing exercise, continue taking vitamin-D 3 supplements at least 2000 units daily and take adequate calcium from dietary sources Orders: Orders XR DEXA axial skeleton Today M85.89 - Other specified disorders of bone density and structure, multiple sites, Z12.31 - Encounter for screening mammogram for malignant neoplasm of breast MM tomosynthesis screening BI Today M85.89 - Other specified disorders of bone density and structure, multiple sites, Z12.31 - Encounter for screening mammogram for malignant neoplasm of breast
[2025-02-12 08:25] VITALS: BP 132/72; PULSE 79; RESP 15; TEMP 36.6; O2SAT 100; BMI 26.3
== END 2025-02-12 08:51 | disposition home or self-care (01) ==
LOC: HO.HMCC 08:05
PROVIDERS: PCP Internal Medicine; Visit Provider Internal Medicine
DX: E78.5 Hyperlipidemia, unspecified (principal); R74.01 Elevation of levels of liver transaminase levels; I10 Essential (primary) hypertension; M85.89 Other specified disorders of bone density and structure, multiple sites

== ENCOUNTER → 2025-02-12 08:04 | Outpatient (BNVA) | payer MEDICARE, SELFPAY | PROVIDERS: PCP Internal Medicine; Visit Provider Internal Medicine | DX: I10 Essential (primary) hypertension (principal); E78.5 Hyperlipidemia, unspecified; R74.01 Elevation of levels of liver transaminase levels; M85.89 Other specified disorders of bone density and structure, multiple sites | CPT/HCPCS: 96127 ==

== ENCOUNTER 2025-07-16 08:10 | Outpatient (REF) | payer MEDICARE, SELFPAY ==
--- NOTE | ~2025-07-16 | MM_ITS ---
EXAMINATION: MM SCREENING DIGITAL BREAST TOMOSYNTHESIS, BILATERAL CLINICAL INFORMATION: Screening. Asymptomatic. COMPARISON: Mammography: Comparison is made with available priors TECHNIQUE: Digital breast mammography with tomosynthesis is performed in both the craniocaudal and mediolateral oblique views along with computer-aided detection (CAD). FINDINGS: There are scattered areas of fibroglandular density (ACR BI-RADS breast composition Category b). There are no significant masses, abnormal calcifications, or other abnormalities. MM/MM tomosynthesis screening BI IMPRESSION: No mammographic evidence of malignancy. ASSESSMENT: BI-RADS BI-RADS 1 - Negative RECOMMENDATION: Routine annual mammography screening. 1 year F/U This examination should not preclude the clinical evaluation of a suspicious palpable abnormality. This patient's information was entered into a reminder system with a target due date for their next mammogram. Electronically signed by: Katelyn Donahue DO 07/20/2025 09:26 AM EDT
--- NOTE | ~2025-07-16 | MM_ITS ---
EXAMINATION: BONE DENSITOMETRY CLINICAL INDICATION: Menopause. Breast malignancy. History of fracture as an adult COMPARISON: Bone density 07/12/2023. Baseline 01/07/2021. TECHNIQUE: Using a Stratopy dual-energy x-ray absorptiometry was performed of the lumbar spine and left hip. The images are of good technical quality. Summary results are attached. FINDINGS: AP SPINE L2-L4: BMD 0.971 g/cm2, Z-score -0.2, T-score -1.9, previous L2-L4 BMD measures 0.930, Z score measured -0.6 and a T score measured -2.3. LEFT FEMUR, NECK: BMD 0.731 g/cm2, Z-score -0.6, T-score -2.2 . LEFT FEMUR, TOTAL: BMD 0.883 g/cm2, Z-score 0.4, T-score -1.0, IDENTIFIED RISK FACTORS: None listed. HISTORY OF FRACTURE: Hip fracture. MEDICATIONS: Calcium supplements, multivitamins and and vitamin D. MM/XR DEXA axial skeleton IMPRESSION: 1. DIAGNOSIS: Osteopenia based on the lowest T-score value of -2.2 in the left femur total applying World Health Organization criteria. Previously left femur total T score is -2.3 2. 2. 10-YEAR FRACTURE RISK PREDICTION, FRAX: 11.6% and for hip fracture 2.3 % 3. Treatment Recommendations: NOF guidelines recommend consideration for treatment in postmenopausal women and men age 50 and older presenting with the following: -A hip or vertebral (clinical or morphometric) fracture. -T-score less than or equal to -2.5 at the femoral neck or spine after appropriate evaluation to exclude secondary causes. -Low bone mass at the hip or spine and a 10-year fracture probability by FRAX of greater than or equal to 3% for hip fracture or greater than or equal to 20% for major osteoporotic fracture based on the [place] adapted WHO algorithm. FUTURE SCAN RECOMMENDATION: People with diagnosed cases of osteoporosis or at high risk for fracture should have regular bone mineral density tests. For patients eligible for Medicare, routine testing is allowed once every 2 years. The testing frequency can be increased to one year for patients who have rapidly progressing disease, those who are receiving or discontinuing medical therapy to restore bone mass, or have additional risk factors. Electronically signed by: Darron Edmondson MD 07/17/2025 07:19 AM EDT RP
== END 2025-07-16 08:11 | disposition home or self-care (01) ==
LOC: HO.MAMMO 08:10
PROVIDERS: PCP Internal Medicine; Visit Provider Internal Medicine
DX: Z12.31 Encounter for screening mammogram for malignant neoplasm of breast (principal); Z13.820 Encounter for screening for osteoporosis; M85.89 Other specified disorders of bone density and structure, multiple sites
CPT/HCPCS: 77063; 77067; 77080

== ENCOUNTER → 2025-07-16 08:45 | Outpatient (BNV) | payer MEDICARE, SELFPAY | PROVIDERS: PCP Internal Medicine; Visit Provider Radiology Diagnostic Radiology | DX: Z12.31 Encounter for screening mammogram for malignant neoplasm of breast (principal) | CPT/HCPCS: 77063; 77067; 77080 ==